=== PATIENT | male | born 1990 | race Caucasian/White ===

== ENCOUNTER 2019-11-29 10:07 | Observation (INO) | payer OTHER, SELFPAY ==
[2019-11-29] VITALS (8 sets, daily range): BP systolic 95–123; BP diastolic 52–67; PULSE 86–125; RESP 16–20; TEMP 36.5–38.1; O2SAT 94–97; BMI 34.3
--- NOTE | ~2019-11-29 | XR_ITS ---
EXAMINATION: XR chest 2V 11/29/2019 11:19 INDICATION: Fever and cough PROCEDURE: 2 view chest COMPARISON: 11/14/2016 and 03/25/2012 FINDINGS: The lungs are clear. The cardiomediastinal silhouette is within normal limits. There are no pleural effusions. There is no pneumothorax suspected. There is chronic posttraumatic deformity distal aspect of the left clavicle. IMPRESSION: 1: NO ACUTE CARDIOPULMONARY DISEASE. Reviewed, dictated and finalized at location [facility]
--- NOTE | 2019-11-29 10:35 | ED.URI ---
HPI - URI/Sore Throat General Chief Complaint: Upper Respiratory Infection Stated Complaint: Marcelino sierra see chest hurts marcelino feel his hands Time Seen by Provider: 11/29/19 10:20 Source: patient Mode of arrival: ambulatory Limitations: no limitations History of Present Illness HPI Narrative: Lewis is a 29-year-old male patient. He presents ambulatory to the emergency room. He states that he has been sick for the past 2 days. He has fever sore throat and nasal congestion. No chest pain. No abdominal pain. No vomiting or diarrhea. MD elicited complaint: fever, sore throat and nasal congestion Pertinent past history: other ( type 2 IDDM) Onset (ago): day(s) ( 2 days) Consistency: intermittent Severity: moderate Description of mucous: clear and watery Able to tolerate fluids by mouth: Yes Exacerbating factors: swallowing Relieving factors: nothing Context: other ( No sick contacts at home. No history of travel.) Associated symptoms: fever and rhinorrhea Treatments prior to arrival: none Related Data Home Medications Medication Instructions Recorded Confirmed insulin glargine [Lantus Solostar 22 unit SUB-Q DAILY 11/29/19 11/29/19 U-100 Insulin] Allergies Allergy/AdvReac Type Severity Reaction Status Date / Time No Known Allergies Allergy Verified 10/29/19 07:39 Review of Systems Review of Systems: All systems reviewed & are unremarkable except as noted in HPI and below Constitutional: Constitutional: Reports as per HPI and Reports fever(s) Eyes: Eyes: Reports as per HPI, Reports no additional eye complaints and Denies change in vision ENT: Reports system reviewed and no additional complaints, except as documented, Reports nasal congestion and Reports sore throat Cardiovascular: Cardiovascular: Reports as per HPI, Reports no additional cardiovascular complaints, Denies chest pain and Denies radiating jaw, neck or arm pain Respiratory: Respiratory: Reports as per HPI, Denies dyspnea and Denies wheezing Gastrointestinal: Gastrointestinal: Reports no additional gastrointestinal complaints, Denies abdominal pain, Denies diarrhea, Denies nausea and Denies vomiting Genitourinary: Genitourinary: Reports no additional male genitourinary complaints, Denies hematuria and Denies dysuria Musculoskeletal: Musculoskeletal: Reports no additional musculoskeletal complaints and Reports myalgias Integumentary/Breasts: Skin/Breast: Reports system reviewed and no additional complaints, except as docu, Denies erythema and Denies rash Neurologic: Reports system reviewed and no additional complaints, except as documented, Denies vertigo, Denies dizziness, Denies syncope, Denies headache(s), Denies focal weakness, Denies numbness and Denies weakness Psychiatric: Psychiatric: Reports no additional psychiatric complaints and Denies anxiety Endocrine: Endocrine: Reports no additional endocrine complaints Comments: History of type 2 IDDM Hematologic/Lymphatic: Hematologic/Lymphatic: Reports no additional hematologic/lymphatic complaints, Denies easy bleeding and Denies easy bruising Allergic/Immunologic: Allergic/Immunologic: Reports no additional allergic/immunologic complaints, Denies lip swelling and Denies tongue swelling PMFSH Social History Social History Smoking status: Never smoker Alcohol intake: former Substance use: never Substance use type: does not use Additional occupation/education comments: construction Gender identity (if verbalized by the patient): Male Spiritual care concerns: No Exam Const: General: no acute distress ( mild distress); No diaphoretic Nutritional Appearance: well nourished Limitations: no limitations HENMT: Ears: TM's normal bilaterally and EAC's normal General nose exam: Nasal discharge present ( clear rhinorrhea) clear Face and sinus: sinuses nontender Mouth: Yes moist mucous membranes Eyes: Conjunctivae: conj
[2019-11-29 10:49] LABS: Basophils Absolute Auto 0.01 K/mm3 (0.00-0.10); Basophils Percent Auto 0.2 % (0.0-1.0); Immature Granulocyte Absolute 0.02 K/mm3 (0.00-0.00); Immature Granulocyte Percent A 0.3 % (0.0-0.0); Lymphocytes Percent Auto 10.8 % (18.0-42.0); Mean Corpuscular Hemoglobin 30.9 pg (27.0-31.0); Mean Corpuscular Volume 88.3 fL (78.0-102.0); Mean Platelet Volume 10.5 fl (8.7-11.0); Monocytes Absolute Auto 0.86 K/mm3 (0.10-0.90); Monocytes Percent Auto 13.2 % (2.0-11.0); Neutrophils Absolute Auto 4.9 K/mm3 (1.7-7.2); Neutrophils Percent Auto 75.5 % (50.0-70.0); Platelet Count Result 200 K/mm3 (150-420); Red Blood Count 4.53 M/mm3 (4.70-6.10); White Blood Count 6.5 K/mm3 (4.8-10.8)
--- NOTE | 2019-11-29 11:00 | PC.NURSE ---
PT CARE IS ASSUMED AT THIS TIME. PT IS SLEEPING AT THIS TIME. PT STATES HE HAS BEEN TYPE II DIABETIC SINCE 2009. STATES THAT HE USES INSULIN AND METFORMIN AND STATES THAT TODAY HAS BEEN THE ONLY TIME HIS FSBS HAS READ HIGH. PT IS UNABLE TO PROVIDE US WITH A URINE, PO FLUIDS GIVEN.
[2019-11-29 11:03] LABS: Alanine Aminotransferase 18 U/L (16-63); Albumin Level 3.1 g/dL (3.4-5.0); Alkaline Phosphatase 83 U/L (46-116); Anion Gap 13.3 mmol/L (7-16); Aspartate Amino Transferase 17 U/L (15-37); Bilirubin,Total 0.6 mg/dL (0.00-1.00); Blood Urea Nitrogen 13 mg/dL (7-18); Calcium 8.6 mg/dL (8.5-10.1); Carbon Dioxide 27 mmol/L (21-32); Chloride 95 mmol/L (98-108); Estimated CRCL calculation 99 ml/min; Estimated Glomerular Filt Rate > 60; Osmolality Calculated 290 mOsm/kg (285-295); Potassium 4.3 mmol/L (3.5-5.1); Sodium 131 mmol/L (136-145); Total Protein 6.7 g/dL (6.4-8.2)
[2019-11-29 11:05] LABS: Glucose 421 mg/dL (70-99)
[2019-11-29 11:06] LABS: Influenza Control Valid (Valid)
[2019-11-29] MEDS: SODIUM CHLORIDE 0.9% IV 1,000 ML 999 ML IV CONT ×2 (11:21→11:52)
[2019-11-29] MEDS: INSULIN HUMAN REGULAR (*BKC) 100 UNITS/ML 8 UNITS IV PUSH (11:23)
[2019-11-29] MEDS: OSELTAMIVIR PHOSPHATE 75 MG CAP PO ×2 (11:25→21:31)
[2019-11-29 11:35] LABS: Base Excess ABG 1.2 mmol/L (0-2); HCO3 ABG 26.1 mmol/L (23-29); Oxygen Content ABG 18.6 %vol (16.0-22.0); Oxygen Saturation ABG 95.3 % (95-97); Oxyhemoglobin 94.5 % (94-100); PCO2 ABG 42.3 mmHg (35-45); PO2 ABG 75.2 mmHg (80-90); pH ABG 7.41 (7.35-7.45)
[2019-11-29 11:36] LABS: Modified Allen's Test Pass; Site Drawn LEFT RADIAL
[2019-11-29 11:37] LABS: Device ROOM AIR
[2019-11-29] MEDS: ACETAMINOPHEN 325 MG TABLET 650 MG PO (11:50)
[2019-11-29 11:59] LABS: Acetone Negative (Negative)
[2019-11-29 12:15] LABS: Glucose Point of Care 226 (65-105)
[2019-11-29] MEDS: SODIUM CHLORIDE 0.9% IV 1,000 ML 125 ML IV CONT ×2 (13:41→21:32)
[2019-11-29 14:01] LABS: Glucose Point of Care 179 (65-105)
--- NOTE | 2019-11-29 14:09 | PM.IMHP ---
H&P: HPI History of Present Illness Chief complaint: Can hardley see chest hurts cant feel his hands Narrative: Lewis Clement is a 29 year old male to the urgent care complaining of shortness of breath, subjective fever, sore throat and nasal congestion for the past 2 day. Patient's past medical history chronic knee and shoulder pain, insulin-dependent diabetic and obesity. Patient's vital signs are 36.6, 96 %, 20, 94, 107/52. According to patient for the last 2 days he has been shortness of breath, subjective fever, sore throat, nasal congestion. During this assessment patient appears to be fatigued that he attributes to influenza. Patient is being admitted for influenza B and hyperglycemia. While in the ER patient did test positive for influenza B his blood sugar was in the 400s. patient was given 8 units of insulin while in the ED. Patient A1c was 10 his blood gas was as follows pH 7.41, pCO2 42.3, PO2 75.2, bicarb 26.1. patient received 2 L bolus the ED as well. Chest x-ray was unremarkable. Patient denies CP, palpitation, extremity numbness, lightheadness, dizziness, constipation, diarrhea, or chills or fever. Review of Systems Constitutional: Constitutional: Reports fatigue, Reports fever(s), Denies headache(s), Reports lethargy and Reports weakness Cardiovascular: Cardiovascular: Reports no additional cardiovascular complaints, Denies lightheadedness, Denies dyspnea on exertion and Denies orthopnea Respiratory: Respiratory: Reports chest congestion, Denies cough and Reports dyspnea Gastrointestinal: Gastrointestinal: Reports no additional gastrointestinal complaints, Denies constipation, Denies diarrhea, Denies loose stools, Denies nausea and Denies vomiting Genitourinary: Genitourinary: Reports no additional male genitourinary complaints Musculoskeletal: Musculoskeletal: Reports no additional musculoskeletal complaints Integumentary/Breasts: Skin/Breast: Reports system reviewed and no additional complaints, except as docu Neurologic: Denies confusion, Denies vertigo, Denies dizziness, Denies syncope and Reports weakness Psychiatric: Psychiatric: Reports no additional psychiatric complaints and Denies confusion [facility] Social History Social History Smoking status: Never smoker Alcohol intake: never Substance use: never Substance use type: does not use Additional occupation/education comments: construction Gender identity (if verbalized by the patient): Male Spiritual care concerns: No Agree to blood products: Yes Meds Home Medications and Allergies Home Medications Medication Instructions Recorded Confirmed Type albuterol sulfate 90 mcg/actuation 1 puff INHALATION Q4H PRN #8.5 gm 10/13/19 11/29/19 Rx aerosol inhaler blood sugar diagnostic #100 each 10/13/19 11/29/19 Rx blood-glucose meter #1 each 10/13/19 11/29/19 Rx fluticasone propionate 50 1 spray NASAL DAILY #18.2 ml 10/13/19 11/29/19 Rx mcg/actuation nasal spray,suspension insulin lispro 100 unit/mL 6 unit SUB-Q DAILY #15 ml 10/13/19 11/29/19 Rx subcutaneous pen lancets 30 gauge #100 each 10/13/19 11/29/19 Rx metformin 500 mg tablet 500 mg PO BID #60 tablet 10/13/19 11/29/19 Rx pen needle, diabetic 31 gauge x #100 each 10/13/19 11/29/19 Rx 5/16 insulin glargine [Lantus Solostar 22 unit SUB-Q DAILY 11/29/19 11/29/19 History U-100 Insulin] Allergies Allergy/AdvReac Type Severity Reaction Status Date / Time No Known Allergies Allergy Verified 10/29/19 07:39 Vital Signs Vital Signs - 24 hr 11/29/19 10:25 11/29/19 11:28 11/29/19 12:19 Temperature 38.1 C H 37.2 C Pulse Rate 125 H 100 100 Respiratory Rate 20 16 16 Blood Pressure 113/67 114/65 123/66 Pulse Oximetry 95 95 96 11/29/19 12:35 11/29/19 13:16 Temperature 36.6 C 36.6 C Pulse Rate 96 Respiratory Rate 20 Blood Pressure 107/52 L Pulse Oximetry 94 Exam Narrative:
[2019-11-29 15:59] LABS: Add Urine Microscopic? YES; Appearance Urine Clear (Clear); Bilirubin Urine Negative (Negative); Blood Urine Negative (Negative); Color Urine Yellow (Yellow); Glucose Urine UA Trace (Negative); Ketones Urine Negative (Negative); Leukocyte Esterase Ur Negative LEU/UL (Negative); Nitrate Urine Negative (Negative); Protein Urine Negative (Negative); Specific Grav Ur <= 1.005 (1.010-1.020); Urobilinogen Urine 0.2 mg/dL (0.2-1.0)
[2019-11-29 16:04] LABS: Bacteria Urine Trace /hpf; RBC Urine 0-2 /hpf (0-2); WBC Urine 0-3 /hpf (0-3)
[2019-11-29 16:23] LABS: Glucose Point of Care 135 (65-105)
[2019-11-29 16:36] LABS: Amphetamine Screen Urine Positive (Negative); Barbiturate Screen Urine Negative (Negative); Benzodiazepines Screen Urine Negative (Negative); Cannabinoid Screen Urine Negative (Negative); Cocaine Screen Urine Negative (Negative); Methadone Screen Urine Negative (Negative); Opiate Screen Urine Negative (Negative); Phencyclidine Screen Urine Negative (Negative)
[2019-11-29] MEDS: metFORMIN HCL 500 MG TABLET PO (18:27)
[2019-11-29] MEDS: BENZONATATE 100 MG CAPSULE 200 MG PO (18:27)
--- NOTE | 2019-11-29 19:30 | PC.NURSE ---
Patient lying in bed. IV NS infusing to site in right hand without difficulty. Patient awakens when spoken to. Denies pain/complaints/needs @ this time. No distress noted. Water pitcher and soda @ bedside. Call light in reach.
--- NOTE | 2019-11-29 21:45 | PC.NURSE ---
Patient awakened easily but remains drowsy. Took HS meds without difficulty. Urinal emptied of clear yellow urine. IV NS infusing to site in right hand without difficulty. Patient denies pain/complaints/needs/SOB/nausea @ this time. No distress noted. Patient says he's just tired. Blood sugar done and =294. Call light in reach.
[2019-11-29 21:47] LABS: Glucose Point of Care 294 (65-105)
[2019-11-30] VITALS: BP 112/67; PULSE 102; RESP 18; TEMP 37.3; O2SAT 93
--- NOTE | 2019-11-30 00:15 | PC.NURSE ---
Patient awakened easily for VS but remained drowsy. Denies pain/complaints/needs/SOB/nausea @ this time. IV NS infusing to site in right hand without difficulty. Water and soda @ bedside. No distress noted. Call light in reach.
--- NOTE | 2019-11-30 01:10 | PC.NURSE ---
Patient appears to be sleeping by the rise and fall of his chest. IV NS infusing to site in right hand without difficulty. No distress noted. Water pitcher and soda @ bedside. Urinal emptied of clear yellow urine. Call light in reach.
--- NOTE | 2019-11-30 04:14 | PC.NURSE ---
Patient turning over in bed as nurse entered room. Patient denies pain/complaints/needs/SOB/nausea @ this time. IV NS infusing to site in right hand without difficulty. Water pitcher refreshed. No distress noted. Call light in reach.
--- NOTE | 2019-11-30 05:00 | PC.NURSE ---
atdarren appears to be sleeping by the rise and fall of his chest. IV NS infusing to site in right hand without difficulty. No distress noted. Water pitcher and soda @ bedside. Call light in reach.
[2019-11-30] MEDS: SODIUM CHLORIDE 0.9% IV 1,000 ML 125 ML IV CONT (05:13)
[2019-11-30 05:31] LABS: Hematocrit 39.3 % (40.0-54.0); Hemoglobin 13.4 g/dL (14.0-18.0); Mean Corpuscular HGB Conc 34.1 g/dL (32.0-36.0); Mean Corpuscular Hemoglobin 30.2 pg (27.0-31.0); Mean Corpuscular Volume 88.7 fL (78.0-102.0); Mean Platelet Volume 10.4 fl (8.7-11.0); Platelet Count Result 171 K/mm3 (150-420); Red Blood Count 4.43 M/mm3 (4.70-6.10); Red Cell Distribution Width 13.2 % (11.6-14.4); White Blood Count 4.1 K/mm3 (4.8-10.8)
[2019-11-30 05:51] LABS: Alanine Aminotransferase 16 U/L (16-63); Albumin Level 2.7 g/dL (3.4-5.0); Alkaline Phosphatase 72 U/L (46-116); Anion Gap 12.9 mmol/L (7-16); Aspartate Amino Transferase 19 U/L (15-37); Bilirubin,Total 0.4 mg/dL (0.00-1.00); Blood Urea Nitrogen 9 mg/dL (7-18); Calcium 7.3 mg/dL (8.5-10.1); Carbon Dioxide 28 mmol/L (21-32); Chloride 98 mmol/L (98-108); Estimated CRCL calculation 127 ml/min; Estimated Glomerular Filt Rate > 60; Glucose 225 mg/dL (70-99); Osmolality Calculated 285 mOsm/kg (285-295); Potassium 3.9 mmol/L (3.5-5.1); Sodium 135 mmol/L (136-145); Total Protein 6.1 g/dL (6.4-8.2)
[2019-11-30 07:48] VITALS: BP 110/69; PULSE 95; RESP 20; TEMP 37.1; O2SAT 100
--- NOTE | 2019-11-30 07:48 | PC.NURSE ---
Lab result 225 11/30/19
[2019-11-30] MEDS: metFORMIN HCL 500 MG TABLET PO (08:59)
[2019-11-30] MEDS: FLUTICASONE PROPIONATE 0.05% NA SPR 16 GM BTL (*BKC) 1 SPRAY NASAL (08:59)
[2019-11-30] MEDS: BENZONATATE 100 MG CAPSULE 200 MG PO (08:59)
[2019-11-30] MEDS: OSELTAMIVIR PHOSPHATE 75 MG CAP PO (08:59)
--- NOTE | 2019-11-30 09:11 | PM.DS ---
DS: Diagnosis Admitting Diagnosis Admitting Diagnosis: Influenza due to unidentified influenza virus with other respiratory manifestations <Jennifer Lozano MEREDITHC - Last Filed: 11/30/19 13:42> Discharge Diagnosis (1) Influenza: Code(s): J11.1 - Influenza due to unidentified influenza virus with other respiratory manifestations <Jennifer Lozano MEREDITHC - Last Filed: 11/30/19 13:42> Status: Acute <Jennifer Lozano MEREDITHC - Last Filed: 11/30/19 13:42> Assessment and Plan: * Patient tested positive for influenza B * continue Tamiflu <Jennifer Lozano HEAD START TEACHER-C - Last Filed: 11/30/19 13:42> (2) Hyponatremia: Code(s): E87.1 - Hypo-osmolality and hyponatremia <Jennifer Lozano MEREDITHC - Last Filed: 11/30/19 13:42> Status: Acute <Jennifer Lozano MEREDITHBrett - Last Filed: 11/30/19 13:42> Assessment and Plan: possibly secondary to viral infection versus dehydration <Jennifer Lozano LUIZ-C - Last Filed: 11/30/19 13:42> (3) Hyperglycemia: Code(s): R73.9 - Hyperglycemia, unspecified <Jennifer Lozano MEREDITHC - Last Filed: 11/30/19 13:42> Status: Acute <Jennifer Lozano SILVIA - Last Filed: 11/30/19 13:42> Assessment and Plan: *blood sugar In the 200s today * A1c 10 * continue home medication and follow with primary care physician <Jennifer Lozano HEAD START TEACHERAustinC - Last Filed: 11/30/19 13:42> (4) Shortness of breath: Code(s): R06.02 - Shortness of breath <Jennifer Lozano [employer] TEACHER-Brett - Last Filed: 11/30/19 13:42> Status: Acute <Jennifer Lozano LUIZ-C - Last Filed: 11/30/19 13:42> Assessment and Plan: * secondary to viral infection * resolved discharge with the inhaler <Jennifer Lozano [employer] TEACHER-C - Last Filed: 11/30/19 13:42> (5) Nicotine dependence: Code(s): F17.200 - Nicotine dependence, unspecified, uncomplicated <Jennifer LozanoLUIZ-C - Last Filed: 11/30/19 13:42> Status: Acute <Jennifer LozanoLUIZ-C - Last Filed: 11/30/19 13:42> Assessment and Plan: refused a prescription for nicotine patch <Jennifer LozanoLUIZ-C - Last Filed: 11/30/19 13:42> (6) Chronic shoulder pain: Code(s): M25.519 - Pain in unspecified shoulder; G89.29 - Other chronic pain <Jennifer LozanoLUIZ-C - Last Filed: 11/30/19 13:42> Status: Acute <Jennifer LozanoLUIZ-C - Last Filed: 11/30/19 13:42> Assessment and Plan: continue pain medication <Jennifer LozanoLUIZ-C - Last Filed: 11/30/19 13:42> (7) Chronic knee pain: Code(s): M25.569 - Pain in unspecified knee; G89.29 - Other chronic pain <Jennifer LozanoLUIZ-C - Last Filed: 11/30/19 13:42> Status: Acute <Jennifer LozanoLUIZ-C - Last Filed: 11/30/19 13:42> Assessment and Plan: continue pain medication <Jennifer LozanoLUIZ-C - Last Filed: 11/30/19 13:42> (8) Type 2 diabetes mellitus, with long-term current use of insulin: Qualifiers: Diabetes mellitus complication status: without complication Qualified Code(s): E11.9 - Type 2 diabetes mellitus without complications; Z79.4 - manager terminal (current) use of insulin <Jennifer OwensJennifer BlakeLUIZ-C - Last Filed: 11/30/19 13:42> Code(s): E11.9 - Type 2 diabetes mellitus without complications; Z79.4 - manager terminal (current) use of insulin <Williegerber GracielaLUIZ Chirinos-C - Last Filed: 11/30/19 13:42> Status: Acute <Sonda SILVIA Talavera - Last Filed: 11/30/19 13:42> Assessment and Plan: *blood sugar and 200s * A1c 10 follow-up with PCP <SILVIA Pereyra - Last Filed: 11/30/19 13:42> (9) Amphetamine abuse: Code(s): F15.10 - Other stimulant abuse, uncomplicated <SILVIA Pereyra - Last Filed: 11/30/19 13:42> Status: Acute <SILVIA Pereyra - Last Filed: 11/30/19 13:42> Assessment and Plan: du
--- NOTE | 2019-11-30 20:46 | PM.EVENT ---
Event Note Event Note Event Note: I had eyru-ox-jylc time with this patient and reviewed Keaton Lozano NP's documentation, treatment plan, and medical decision making. Pt states in the last week or so his blood pressures have periodically been running higher. He attributes blurred vision to hyperglycemia. Sodium corrected for glucose = 137, Calcium corrected for albumin = 8.56. Agree with plan.
== END 2019-11-30 10:00 | disposition home or self-care (01) ==
LOC: CHSED 11:08 → CHS2ND 12:09
PROVIDERS: Nurse Practitioner; Admitting Provider Surgery; Emergency Provider Surgery; PCP Family Medicine; Visit Provider Surgery
DX: J11.1 Influenza due to unidentified influenza virus with other respiratory manifestations (principal); E87.1 Hypo-osmolality and hyponatremia; E11.65 Type 2 diabetes mellitus with hyperglycemia; M25.519 Pain in unspecified shoulder; G89.29 Other chronic pain; Z79.4 Long term (current) use of insulin
CPT/HCPCS: 36415; 36600; 71046; 80053; 80307; 81001; 82010; 82805; 83036; 85025; 85027; 87081; 87804; 87880; 96360; 96361; 96374; 99284; 99285; A9270; G0378; G0379; J1815; J7030

== ENCOUNTER 2020-01-23 13:46 | Emergency (ER) | payer OTHER, SELFPAY ==
[2020-01-23 14:07] VITALS: BP 138/78; PULSE 78; RESP 18; TEMP 36.9; O2SAT 97
[2020-01-23 14:34] LABS: Hematocrit 39.7 % (40.0-54.0); Hemoglobin 13.4 g/dL (14.0-18.0); Mean Corpuscular HGB Conc 33.8 g/dL (32.0-36.0); Mean Corpuscular Hemoglobin 30.5 pg (27.0-31.0); Mean Corpuscular Volume 90.4 fL (78.0-102.0); Mean Platelet Volume 9.8 fl (8.7-11.0); Platelet Count Result 256 K/mm3 (150-420); Red Blood Count 4.39 M/mm3 (4.70-6.10); White Blood Count 11.9 K/mm3 (4.8-10.8)
[2020-01-23 14:49] LABS: Alanine Aminotransferase 29 U/L (16-63); Albumin Level 2.9 g/dL (3.4-5.0); Alkaline Phosphatase 126 U/L (46-116); Anion Gap 10.8 mmol/L (7-16); Aspartate Amino Transferase 16 U/L (15-37); Bilirubin,Total 0.5 mg/dL (0.00-1.00); Blood Urea Nitrogen 10 mg/dL (7-18); Calcium 8.6 mg/dL (8.5-10.1); Carbon Dioxide 28 mmol/L (21-32); Chloride 99 mmol/L (98-108); Estimated CRCL calculation 97 ml/min; Estimated Glomerular Filt Rate > 60; Glucose 320 mg/dL (70-99); Osmolality Calculated 289 mOsm/kg (285-295); Potassium 3.8 mmol/L (3.5-5.1); Sodium 134 mmol/L (136-145); Total Protein 6.8 g/dL (6.4-8.2)
[2020-01-23] MEDS: KETOROLAC (*BKC) 60 MG/2 ML VIAL IM (14:56)
--- NOTE | 2020-01-23 14:58 | PC.NURSE ---
Pt state he is unable to provide urine sample at this time.
[2020-01-23] MEDS: AZITHROMYCIN 250 MG TABLET 1000 MG PO (15:16)
[2020-01-23] MEDS: cefTRIAXone 500 MG VIAL IM (15:17)
[2020-01-23 15:29] LABS: Bilirubin Urine Negative (Negative); Blood Urine Negative (Negative); Glucose Urine UA 3+ (Negative); Ketones Urine Negative (Negative); Leukocyte Esterase Ur Negative (Negative); Nitrate Urine Negative (Negative); Protein Urine Negative (Negative); Urobilinogen Urine 0.2 mg/dL (0.2-1.0)
--- NOTE | 2020-01-23 15:38 | ED.MALEGU ---
HPI - Male Genitourinary General Chief complaint: Urogenital-Male Stated complaint: testical pain Source: patient Mode of arrival: ambulatory Limitations: no limitations History of Present Illness HPI Narrative: Sh 29-year-old male presents with some some penile discharge started approximately 2 days ago greenish discharge, admits to a high risk sexual encounter is having left testicular pain with no injury it is tender and swollen, currently no fever chills no nausea vomiting no abdominal pain no back pain. MD Complaint: testicle pain, testicle swelling, penile discharge and dysuria Onset (ago): day(s) Duration: constant Location: penis and left testicle Radiation: penis Severity: moderate Severity scale (1-10): 6 Quality: aching Relieving factors: supine Exacerbating factors: palpation and movement Associated symptoms: Reports discharge and swelling Related Data Sexually active: Yes Home Medications Medication Instructions Recorded Confirmed insulin glargine [Lantus U-100 30 unit SUBCUT QAM 01/23/20 01/23/20 Insulin] insulin lispro [Humalog U-100 6 unit SUBCUT TID 01/23/20 01/23/20 Insulin] Allergies Allergy/AdvReac Type Severity Reaction Status Date / Time No Known Allergies Allergy Verified 12/07/19 06:54 Review of Systems Review of Systems: All systems reviewed & are unremarkable except as noted in HPI and below PMFSH Past Medical History Medical History Chronic knee pain Chronic shoulder pain Nicotine dependence Obesity, Class I, BMI 30-34.9 Type 2 diabetes mellitus, with long-term current use of insulin Surgical History Surgical History No history of previous surgery Family History Family History Other Family history of coronary artery disease Family history of type 2 diabetes mellitus Social History Social History Smoking status: Never smoker Alcohol intake: never Substance use: never Substance use type: does not use Additional occupation/education comments: construction Gender identity (if verbalized by the patient): Male Spiritual care concerns: No Agree to blood products: Yes Exam Const: General: no acute distress and alert Orientation/consciousness: oriented to person, oriented to place and oriented to time HENMT: Head: normal to inspection Eyes: Conjunctivae: conjunctivae normal Pupils: Equal, round and reactive pupils present Neck: Neck: normal visual inspection and no lymphadenopathy Other: Left inguinal lymphadenopathy and tender to palpation Chest: Chest palpation & inspection: normal inspection of the chest and abnormal inspection of the chest Resp: Effort & Inspection: normal respiratory effort Auscultation: clear to auscultation bilaterally Cardio: Rate: regular rate Rhythm: regular rhythm GI: GI Palp: Yes Soft to palpation : Scrotum: scrotal swelling Testes: epididymal tenderness Back/Spine/Pelvis: Other: penile discharge Extrem: General: normal to inspection Course Course Emergency Course: patient currently sleeping and had a more comfortable after medication. Vital Signs Vital signs: Vital Signs Temperature 36.9 C 01/23/20 14:07 Pulse Rate 78 01/23/20 14:07 Respiratory Rate 18 01/23/20 14:07 Blood Pressure 138/78 01/23/20 14:07 Pulse Oximetry 97 01/23/20 14:07 Temperature 36.9 C 01/23/20 14:07 Pulse Rate 78 01/23/20 14:07 Respiratory Rate 18 01/23/20 14:07 Blood Pressure 138/78 01/23/20 14:07 Pulse Oximetry 97 01/23/20 14:07 MDM - Male Genitourinary Lab Data Attestation: I reviewed the patient's lab results. Result diagrams: 01/23/20 14:26 01/23/20 14:26 Labs: Lab Results 01/23/20 01/23/20 01/23/20 Range/Units 1
[2020-01-23 15:42] LABS: HIV 1 P24 AG Negative (Negative); HIV 1/2 AB Negative (Negative)
--- NOTE | 2020-01-23 15:42 | PC.NURSE ---
Pt sleeping on stretcher, awakens easily when name called.
[2020-01-23 15:46] LABS: Add Urine Microscopic? YES; Appearance Urine Cloudy (Clear); Color Urine Light Yellow (Yellow); RBC Urine None seen /hpf (0-2)
[2020-01-23 15:47] LABS: Bacteria Urine Trace /hpf; Squamous Epithelial Cell Urine None seen /hpf (Few); WBC Clumps Urine Present /hpf; WBC Urine >75 /hpf (0-3)
[2020-01-23 16:04] VITALS: RESP 18; O2SAT 98
[2020-01-27 16:28] LABS: RPR Screen Non-Reactive (Non-Reactive)
== END 2020-01-23 16:04 | disposition home or self-care (01) ==
PROVIDERS: Emergency Provider Emergency Medicine
DX: Z20.2 Contact with and (suspected) exposure to infections with a predominantly sexual mode of transmission (principal); N45.1 Epididymitis
CPT/HCPCS: 36415; 80053; 81001; 85027; 86592; 86703; 87491; 87591; 96372; 99284; A9270; J0696; J1885

== ENCOUNTER 2020-04-21 07:49 | Emergency (ER) | payer OTHER, SELFPAY ==
[2020-04-21] VITALS (7 sets, daily range): BP systolic 109–139; BP diastolic 60–81; PULSE 94–111; RESP 13–20; TEMP 36.7; O2SAT 95–100
--- NOTE | ~2020-04-21 | XR_ITS ---
EXAMINATION: XR chest 1V portable INDICATION: Shortness of breath TECHNIQUE: Portable AP chest at 0957 hours COMPARISON: 11/29/2019 FINDINGS: The lungs are free of acute opacities. There is no pleural effusion or pneumothorax. The ca rdiomediastinal silhouette is normal. There are chronic changes at the left acromioclavicular joint c onsistent with prior injury. IMPRESSION: 1. No acute cardiopulmonary abnormality. Reviewed, dictated and finalized at location A.
[2020-04-21 08:02] LABS: Glucose Point of Care > 450 (65-105)
[2020-04-21] MEDS: INSULIN HUMAN REGULAR (*BKC) 100 UNITS/ML IV PUSH (08:35)
--- NOTE | 2020-04-21 08:40 | ECG_ITS ---
Measurements Intervals [place] Rate: 105 P: 85 PA: 124 QRS: 70 QRSD: 100 T: 4 QT: 347 QTc: 460 Interpretive Statements SINUS TACHYCARDIA INCOMPLETE RIGHT BUNDLE BRANCH BLOCK NONSPECIFIC T-WAVE ABNORMALITY- INFERIOR LEADS ABNORMAL ECG Electronically Signed On 04-21-2020 9:09:37 CDT by Juno Burton D.O.
[2020-04-21] MEDS: ONDANSETRON INJ 4 MG/2 ML VIAL IV PUSH (08:43)
--- NOTE | 2020-04-21 08:47 | ED.GENADULT ---
HPI - General Adult General Chief complaint: Nausea/Vomiting/Diarrhea Stated complaint: ambulance Source: patient Mode of arrival: EMS Limitations: no limitations History of Present Illness HPI narrative: 29 y.o. with Type 1 IDDM felt lightheaded yesterday. He has had polyuria and intense thirst since ~ 1 AM. At 6:45 AM today he developed nausea, vomiting x 6. C/o new onset SOB while I was examining him at 8:30 AM. He has been taking Lantus 30 u ever AM and Novolog 7 units TID, before meals. He ran out of his insulin yesterday AM. He was dx with DM 04/2010, started on insulin 09/2010. He has a past hx (several years ago) of cocaine use; denies any illicit drug use since then. No IV drugs. Related Data Home Medications Medication Instructions Recorded Confirmed insulin glargine [Lantus U-100 30 unit SUBCUT QAM 01/23/20 04/21/20 Insulin] insulin lispro [Humalog U-100 7 unit SUBCUT TID 01/23/20 04/21/20 Insulin] Allergies Allergy/AdvReac Type Severity Reaction Status Date / Time No Known Allergies Allergy Verified 12/07/19 06:54 Review of Systems Constitutional: Constitutional: Denies chills and Denies fever(s) Eyes: Comments: blurred vision left eye ENT: Reports sore throat (yesterday after swalling a piece of yoder; resolved. ) Cardiovascular: Cardiovascular: Denies chest pain Respiratory: Respiratory: Denies chest congestion, Denies cough and Denies wheezing Gastrointestinal: Gastrointestinal: Denies abdominal pain, Denies constipation and Denies diarrhea Genitourinary: Genitourinary: Denies dysuria and Denies penile discharge Musculoskeletal: Musculoskeletal: Denies myalgias and Denies arthralgias Integumentary/Breasts: Skin/Breast: Denies rash and Denies skin ulcer Neurologic: Reports numbness (side of left thumb/old. No new symptoms of numbness. ) Psychiatric: Psychiatric: Denies anxiety and Denies depression Endocrine: Endocrine: Reports polydipsia and Reports polyuria PMF Past Medical History Medical History Chronic knee pain Chronic shoulder pain Nicotine dependence Obesity, Class I, BMI 30-34.9 Type 2 diabetes mellitus, with long-term current use of insulin Surgical History Surgical History No history of previous surgery Family History Family History Other Family history of coronary artery disease Family history of type 2 diabetes mellitus Social History Social History Smoking status: Never smoker Alcohol intake: never Substance use: never Substance use type: does not use Additional occupation/education comments: construction Gender identity (if verbalized by the patient): Male Spiritual care concerns: No Agree to blood products: Yes Exam Narrative: Exam Narrative: Eyes are partially open, R>L Const: General: No no acute distress, confusion or diaphoretic Orientation/consciousness: patient oriented x3 (Thinks it's april 22, (it is April 21, Friday)) Limitations: No altered mental status HENMT: Head: normal to inspection Ears: TM's normal bilaterally Mouth: Yes Normal oral and palatal mucosa present Eyes: Conjunctivae: conjunctivae normal Pupils: Equal, round and reactive pupils present Other: upper 1/3 of pupil is covered with eyelid on right, upper 2/3 of eyelid covers pupil on the left. Reads print left eye only when eyelid is manually raised. Neck: Neck: normal visual inspection and no lymphadenopathy Chest: Chest palpation & inspection: normal inspection of the chest Resp: Effort & Inspection: normal respiratory effort and not labored Auscultation: clear to auscultation bilaterally Cardio: Rate: regular rate Rhythm: regular rhythm Heart sounds: no murmurs GI: Inspection: distended GI Palp: Yes Soft to pal
[2020-04-21 08:52] LABS: Basophils Absolute Auto 0.03 K/mm3 (0.00-0.10); Basophils Percent Auto 0.4 % (0.0-1.0); Eosinophils Absolute Auto 0.01 K/mm3 (0.02-0.50); Eosinophils Percent Auto 0.1 % (1.0-6.0); Hematocrit 40.2 % (40.0-54.0); Hemoglobin 14.3 g/dL (14.0-18.0); Immature Granulocyte Absolute 0.02 K/mm3 (0.00-0.00); Immature Granulocyte Percent A 0.3 % (0.0-0.0); Lymphocytes Absolute Auto 1.04 K/mm3 (1.10-4.50); Lymphocytes Percent Auto 13.4 % (18.0-42.0); Mean Corpuscular HGB Conc 35.6 g/dL (32.0-36.0); Mean Corpuscular Hemoglobin 30.8 pg (27.0-31.0); Mean Corpuscular Volume 86.5 fL (78.0-102.0); Mean Platelet Volume 11.3 fl (8.7-11.0); Monocytes Percent Auto 6.4 % (2.0-11.0); Neutrophils Absolute Auto 6.2 K/mm3 (1.7-7.2); Neutrophils Percent Auto 79.4 % (50.0-70.0); Platelet Count Result 276 K/mm3 (150-420); Red Blood Count 4.65 M/mm3 (4.70-6.10); Red Cell Distribution Width 12.2 % (11.6-14.4); White Blood Count 7.8 K/mm3 (4.8-10.8)
[2020-04-21 08:58] LABS: Base Excess ABG -4.7 mmol/L (0-2); HCO3 ABG 20.1 mmol/L (23-29); Oxygen Content ABG 19.1 %vol (16.0-22.0); Oxygen Saturation ABG 94.7 % (95-97); Oxyhemoglobin 94.1 % (94-100); PCO2 ABG 36.7 mmHg (35-45); PO2 ABG 79.9 mmHg (80-90); Total Hemoglobin 14.4 g/dL; pH ABG 7.36 (7.35-7.45)
[2020-04-21] MEDS: INSULIN HUMAN REGULAR (*BKC) 100 UNITS in SODIUM CHLORIDE 0.9% IV 99 ML IV CONT (09:00)
[2020-04-21 09:05] LABS: Device ROOM AIR; Modified Allen's Test Pass; Site Drawn RIGHT RADIAL
[2020-04-21 09:07] LABS: Amphetamine Screen Urine Positive (Negative); Barbiturate Screen Urine Negative (Negative); Benzodiazepines Screen Urine Negative (Negative); Cannabinoid Screen Urine Negative (Negative); Cocaine Screen Urine Negative (Negative); Methadone Screen Urine Negative (Negative); Opiate Screen Urine Negative (Negative); Phencyclidine Screen Urine Negative (Negative)
[2020-04-21 09:17] LABS: Influenza Control Valid (Valid)
[2020-04-21 09:17] LABS: Lactic Acid 3.1 mmol/L (0.4-2.0)
[2020-04-21 09:19] LABS: Acetone Negative (Negative)
[2020-04-21 09:24] LABS: Alanine Aminotransferase 39 U/L (16-63); Albumin Level 3.3 g/dL (3.4-5.0); Alkaline Phosphatase 124 U/L (46-116); Anion Gap 20.3 mmol/L (7-16); Aspartate Amino Transferase 30 U/L (15-37); Bilirubin,Total 1.2 mg/dL (0.00-1.00); Blood Urea Nitrogen 16 mg/dL (7-18); Calcium 8.7 mg/dL (8.5-10.1); Carbon Dioxide 22 mmol/L (21-32); Chloride 89 mmol/L (98-108); Estimated CRCL calculation 79 ml/min; Estimated Glomerular Filt Rate 54; Potassium 4.3 mmol/L (3.5-5.1); Sodium 127 mmol/L (136-145); Total Protein 6.8 g/dL (6.4-8.2)
[2020-04-21 09:33] LABS: Glucose > 800 mg/dL (70-99); Osmolality Calculated 304 mOsm/kg (285-295)
[2020-04-21 09:34] LABS: Magnesium 1.9 mg/dL (1.8-2.4)
[2020-04-21] MEDS: SODIUM CHLORIDE 0.9% IV 1,000 ML 999 ML IRRIGATION (09:56)
--- NOTE | 2020-04-21 09:59 | PC.NURSE ---
Pt requesting something to drink at this time, per MD Stephen pt may have ice chips. Ice chips provided, pt states I don't want this I want something to drink. Pt informed that we need to trial ice chips at this time and can re-evaluate if he can have something to drink later. Pt agreeable at this time. Remains laying on stretcher, on monitor, with call light in reach.
[2020-04-21] MEDS: KCL 20MEQ/0.9% SOD CHL 1,000 ML 500 ML IV CONT (10:12)
[2020-04-21] MEDS: INSULIN HUMAN REGULAR (*BKC) 100 UNITS/ML 6 UNITS IV PUSH (10:16)
[2020-04-21] MEDS: INSULIN HUMAN REGULAR (*BKC) 100 UNITS in SODIUM CHLORIDE 0.9% IV 99 ML 10 UNITS IV CONT (10:20)
[2020-04-21 10:27] LABS: Anion Gap 17.1 mmol/L (7-16); Blood Urea Nitrogen 15 mg/dL (7-18); Calcium 8.7 mg/dL (8.5-10.1); Carbon Dioxide 23 mmol/L (21-32); Chloride 95 mmol/L (98-108); Estimated CRCL calculation 82 ml/min; Estimated Glomerular Filt Rate 56; Potassium 4.1 mmol/L (3.5-5.1); Sodium 131 mmol/L (136-145)
[2020-04-21 10:28] LABS: Glucose 720 mg/dL (70-99); Osmolality Calculated 307 mOsm/kg (285-295)
[2020-04-21 10:29] LABS: Phosphorus 3.3 mg/dL (2.6-4.7)
--- NOTE | 2020-04-21 10:33 | PC.NURSE ---
Pt tolerated ice chips without issue, MD Stephen made aware, pt requests water at this time. MD Stephen states pt can have water, water provided. Pt remains on stretcher, on monitor, with call light in reach.
--- NOTE | 2020-04-21 10:49 | PC.NURSE ---
[facility] contacted for bed transfer, informed that they do not have an ICU bed available at this time and will not throughout the day. Pt next requests we contact [facility], they are contacted at this time and we are awaiting word back.
[2020-04-21 10:57] LABS: Glucose Point of Care > 450 (65-105)
--- NOTE | 2020-04-21 11:00 | PC.NURSE ---
MD Stephen gave report to accepting physician MD Stewart at [facility]. Awaiting bed assignment at this time. Pt continues to rest on stretcher in NAD, remains on monitor, call light in reach.
[2020-04-21 11:37] LABS: Anion Gap 13.9 mmol/L (7-16); Blood Urea Nitrogen 13 mg/dL (7-18); Calcium 8.7 mg/dL (8.5-10.1); Carbon Dioxide 26 mmol/L (21-32); Chloride 98 mmol/L (98-108); Estimated CRCL calculation 84 ml/min; Estimated Glomerular Filt Rate 58; Potassium 3.9 mmol/L (3.5-5.1); Sodium 134 mmol/L (136-145)
[2020-04-21 11:38] LABS: Glucose 506 mg/dL (70-99); Osmolality Calculated 301 mOsm/kg (285-295)
[2020-04-21] MEDS: INSULIN HUMAN REGULAR (*BKC) 100 UNITS in SODIUM CHLORIDE 0.9% IV 99 ML 6 UNITS IV CONT (11:45)
--- NOTE | 2020-04-21 12:07 | PC.NURSE ---
Report provided to [facility]STR[facility] for transfer. Pt to be transfered to [facility] ICU A4, pending transportation. Currently pt is rest on stretcher, talking on phone to family, NAD noted, remains on monitor, and call light in reach.
--- NOTE | 2020-04-21 12:19 | PC.NURSE ---
[facility] called for transport, awaiting call back for ETA.
[2020-04-21 13:06] LABS: Anion Gap 9.1 mmol/L (7-16); Blood Urea Nitrogen 12 mg/dL (7-18); Calcium 8.7 mg/dL (8.5-10.1); Carbon Dioxide 30 mmol/L (21-32); Chloride 101 mmol/L (98-108); Estimated CRCL calculation 90 ml/min; Estimated Glomerular Filt Rate > 60; Glucose 365 mg/dL (70-99); Osmolality Calculated 296 mOsm/kg (285-295); Potassium 4.1 mmol/L (3.5-5.1); Sodium 136 mmol/L (136-145)
[2020-04-22 00:47] LABS: SARS-CoV-2 RNA PCR Negative
[2020-05-04 10:50] LABS: Glucose Point of Care > 450 (65-105)
== END 2020-04-21 12:56 | disposition short-term general hospital (02) ==
PROVIDERS: Emergency Provider Family Medicine; PCP Family Medicine
DX: E10.10 Type 1 diabetes mellitus with ketoacidosis without coma (principal); Z79.4 Long term (current) use of insulin
CPT/HCPCS: 36415; 36600; 71045; 80048; 80053; 80307; 82010; 82805; 83605; 83735; 84100; 85025; 87040; 87635; 87804; 93005; 96361; 96365; 96366; 96375; 96376; 99285; C9803; J1815; J2405; J3480; J7030; U0003

== ENCOUNTER 2020-06-23 15:35 | Emergency (ER) | payer OTHER, SELFPAY ==
--- NOTE | 2020-06-23 15:47 | ED.SKABFB ---
HPI - Skin/Abscess/Foreign Bdy General Chief complaint: Skin/Abscess/Foreign Body Stated complaint: swelling in chest,shoulder,neck Time Seen by Provider: 06/23/20 15:47 Source: patient Mode of arrival: ambulatory Limitations: no limitations History of Present Illness HPI narrative: 29-year-old man comes in today complaining of left shoulder pain and a rash on his left arm that has been present for last 2 days. Patient states that he thought it was a staph infection. He developed the symptoms a week and a half after having a tattoo on his left upper chest. He has had no fever, nausea, vomiting, difficulty breathing, cough, rash elsewhere, headache or throat pain. MD complaint: rash Onset (ago): day(s) (2) Location: LUE Severity: moderate Quality: burning and sharp Pain Consistency: constant Relieving factors: none Exacerbating factors: palpation Context: none Treatments prior to arrival: NSAID Related Data Home Medications Medication Instructions Recorded Confirmed insulin glargine [Lantus U-100 40 unit SUBCUT QAM 01/23/20 06/23/20 Insulin] insulin lispro [Humalog U-100 See Protocol SUBCUT TID 01/23/20 06/23/20 Insulin] Allergies Allergy/AdvReac Type Severity Reaction Status Date / Time No Known Allergies Allergy Verified 12/07/19 06:54 Review of Systems Constitutional: Constitutional: Denies chills, Denies fever(s) and Denies weakness Eyes: Eyes: Denies change in vision and Denies photophobia ENT: Denies nasal congestion and Denies sore throat Cardiovascular: Cardiovascular: Denies chest pain and Denies radiating jaw, neck or arm pain Respiratory: Respiratory: Denies cough, Denies dyspnea and Denies wheezing Gastrointestinal: Gastrointestinal: Denies abdominal pain, Denies nausea and Denies vomiting Musculoskeletal: Musculoskeletal: Denies arthralgias and Denies joint swelling Integumentary/Breasts: Skin/Breast: Reports as per HPI, Denies pruritus, Denies erythema and Reports rash Neurologic: Denies vertigo, Denies dizziness and Denies syncope Endocrine: Endocrine: Denies polydipsia and Denies polyuria Hematologic/Lymphatic: Hematologic/Lymphatic: Denies easy bleeding and Denies easy bruising Allergic/Immunologic: Allergic/Immunologic: Denies lip swelling and Denies wheezing PMFSH Past Medical History Medical History Chronic knee pain Chronic shoulder pain Nicotine dependence Obesity, Class I, BMI 30-34.9 Type 2 diabetes mellitus, with long-term current use of insulin Surgical History Surgical History No history of previous surgery Social History Social History Smoking status: Never smoker Alcohol intake: never Substance use: never Substance use type: does not use Additional occupation/education comments: construction Gender identity (if verbalized by the patient): Male Spiritual care concerns: No Agree to blood products: Yes Exam Const: General: healthy appearing and alert Orientation/consciousness: patient oriented x3 Limitations: no limitations Other: Mild acute distress. HENMT: Head: normal to inspection Mouth: Yes moist mucous membranes Throat: posterior oropharynx normal Eyes: Conjunctivae: conjunctivae normal Pupils: Equal, round and reactive pupils present EOM: EOMs intact bilaterally Resp: Effort & Inspection: normal respiratory effort and not labored Auscultation: clear to auscultation bilaterally, no rales, no rhonchi and no wheezes Cardio: Rate: regular rate Rhythm: regular rhythm Heart sounds: no murmurs Skin: General skin exam: normal color, no jaundice and no pallor Other: Patches of vesicular lesions on the left upper arm, left forearm. There tender. is tenderness palpation of the skin over the scapula and over the right upper lateral chest near the axilla. T
[2020-06-23 15:48] VITALS: BP 120/68; PULSE 81; RESP 18; TEMP 36.7; O2SAT 97
[2020-06-23 16:05] VITALS: BP 122/75; PULSE 80; RESP 18; O2SAT 100
== END 2020-06-23 16:09 | disposition home or self-care (01) ==
PROVIDERS: Emergency Provider Emergency Medicine
DX: B02.9 Zoster without complications (principal)
CPT/HCPCS: 99283

== ENCOUNTER 2020-06-24 22:44 | Emergency (ER) | payer OTHER, SELFPAY ==
--- NOTE | 2020-06-24 23:00 | ED.MALEGU ---
HPI - Male Genitourinary General Chief complaint: Urogenital-Male Stated complaint: possible STD Source: patient and RN notes reviewed Mode of arrival: ambulatory Limitations: no limitations History of Present Illness HPI Narrative: Patient states his girlfriend was recently diagnosed with gonorrhea and chlamydia. He has had cream-colored discharge for the last 2 days. He denies any dysuria. Complaint: penile discharge ([place]) Onset (ago): day(s) (2) Duration: intermittent Location: penis Severity: moderate Relieving factors: none Exacerbating factors: none Associated symptoms: Reports denies other symptoms Related Data Home Medications Medication Instructions Recorded Confirmed insulin glargine [Lantus U-100 40 unit SUBCUT QAM 01/23/20 06/24/20 Insulin] insulin lispro [Humalog U-100 See Protocol SUBCUT TID 01/23/20 06/24/20 Insulin] Allergies Allergy/AdvReac Type Severity Reaction Status Date / Time No Known Allergies Allergy Verified 12/07/19 06:54 Review of Systems Review of Systems: All systems reviewed & are unremarkable except as noted in HPI and below PMFSH Past Medical History Medical History Chronic knee pain Chronic shoulder pain Nicotine dependence Obesity, Class I, BMI 30-34.9 Type 2 diabetes mellitus, with long-term current use of insulin Surgical History Surgical History No history of previous surgery Family History Family History Other Family history of coronary artery disease Family history of type 2 diabetes mellitus Social History Social History Smoking status: Never smoker Alcohol intake: never Substance use: never Substance use type: does not use Additional occupation/education comments: construction Gender identity (if verbalized by the patient): Male Spiritual care concerns: No Agree to blood products: Yes Exam Const: General: healthy appearing, no acute distress and alert Nutritional Appearance: well nourished Orientation/consciousness: patient oriented x3 Other: Patient gave me permission to speak freely in front of his girlfriend. HENMT: Head: normal to inspection Face and sinus: normal facial exam Eyes: Conjunctivae: conjunctivae normal Pupils: Equal, round and reactive pupils present EOM: EOMs intact bilaterally Neck: Neck: normal visual inspection Resp: Effort & Inspection: normal respiratory effort Auscultation: clear to auscultation bilaterally Cardio: Rate: regular rate Rhythm: regular rhythm GI: GI Palp: Yes Soft to palpation and No Tenderness to palpation present (GI) Auscultation: normal bowel sounds Back/Spine/Pelvis: Cervical Spine: cervical ROM normal Thoracic/Lumbar Spine: thoraco-lumbar ROM normal Skin: General skin exam: normal color Rashes: no rashes Neuro: General: patient oriented x3 and moves all extremities Speech: normal speech Gait exam (Neuro): Normal gait present Extrem: General: normal to inspection and no clubbing, cyanosis or edema Psych: Appearance: grossly normal and well kempt Mental Status: mental status grossly normal Affect: normal affect Attitude: cooperative Thought content: Yes Normal thought content present Course Vital Signs Vital signs: Vital Signs Temperature 35.7 C L 06/24/20 23:04 Pulse Rate 109 H 06/24/20 23:04 Respiratory Rate 20 06/24/20 23:04 Blood Pressure 136/82 06/24/20 23:04 Pulse Oximetry 97 06/24/20 23:04 Temperature 36.6 C 06/24/20 23:48 Pulse Rate 98 06/24/20 23:48 Respiratory Rate 18 06/24/20 23:48 Blood Pressure 128/78 06/24/20 23:48 Pulse Oximetry 98 06/24/20 23:48 MDM - Male Genitourinary Lab Data Labs: Lab Results 06/24/20 Range/Units 23:28 C.trachomatis RNA (TMA) Pending N.gonorrhoeae
[2020-06-24 23:04] VITALS: BP 136/82; PULSE 109; RESP 20; TEMP 35.7; O2SAT 97
[2020-06-24 23:08] VITALS: BP 136/82; PULSE 100; RESP 18; TEMP 35.7; O2SAT 97
[2020-06-24] MEDS: cefTRIAXone 250 MG VIAL IM (23:32)
[2020-06-24] MEDS: LIDOCAINE HCL 1% LOCAL INJ 20 ML VIAL (23:32)
[2020-06-24] MEDS: AZITHROMYCIN 250 MG TABLET 1000 MG PO (23:33)
[2020-06-24 23:48] VITALS: BP 128/78; PULSE 98; RESP 18; TEMP 36.6; O2SAT 98
== END 2020-06-24 23:49 | disposition home or self-care (01) ==
PROVIDERS: Emergency Provider Emergency Medicine
DX: Z20.2 Contact with and (suspected) exposure to infections with a predominantly sexual mode of transmission (principal)
CPT/HCPCS: 87491; 87591; 96372; 99283; A9270; J0696

== ENCOUNTER 2020-09-28 20:48 | Emergency (ER) | payer OTHER, SELFPAY ==
--- NOTE | ~2020-09-28 | XR_ITS ---
EXAMINATION: XR chest 1V portable INDICATION: Transient alteration of awareness TECHNIQUE: Portable AP chest at 2109 hours COMPARISON: 04/21/2020 FINDINGS: The lung volumes are low. There are patchy bilateral airspace opacities. The heart size is normal. There is no pleural effusion or pneumothorax. The visualized osseous structures are unremarka ble. IMPRESSION: 1. Patchy bilateral airspace opacities which could be due to poor inspiration versus pneumonia/atelec tasis. Reviewed, dictated and finalized at location A. ICAL ASST IMPRESSION: 1. Patchy bilateral airspace opacities which could be due to poor inspiration v ersus pneumonia/atelectasis.
--- NOTE | 2020-09-28 20:52 | ED.AMS ---
HPI - Altered Mental Status General Chief Complaint: Unspecified Stated Complaint: elevated blood sugar Time Seen by Provider: 09/28/20 20:52 Source: patient Mode of arrival: wheelchair Limitations: altered mental status History of Present Illness HPI narrative: 30-year-old man brought to the emergency department by friends with altered mental status while he was complaining that his blood sugar was too high. Friend who accompanies here with him today states that he was fine today ate lunch and was having no problems when she saw that he went to the local [employer]. She states she fell asleep when she woke up friend was telling her that he was having problems. She is unaware of any recent drug or alcohol use or trauma however he did fall out of his vehicle on arriving to the hospital. He is here visiting friends and some of his insulin is at home and unavailable to him. complaint: altered mental status and decreased responsiveness Onset (ago): hour(s) (1-2) Timing confirmed by: family member Severity: severe Consistency of symptoms: constant Context: diabetes Associated symptoms: denies other symptoms Related Data Home Medications Medication Instructions Recorded Confirmed insulin glargine [Lantus U-100 40 unit SUBCUT QAM 01/23/20 09/28/20 Insulin] insulin lispro [Humalog U-100 See Protocol SUBCUT TID 01/23/20 09/28/20 Insulin] Allergies Allergy/AdvReac Type Severity Reaction Status Date / Time Fish Containing Products Allergy Unknown Verified 09/28/20 21:23 Review of Systems Review of Systems: ROS unobtainable: Yes unobtainable due to mental status PMFSH Past Medical History Medical History (Updated 09/28/20 @ 22:56 by Shane Rodriguez MD) Chronic knee pain Chronic shoulder pain Nicotine dependence Obesity, Class I, BMI 30-34.9 Type 2 diabetes mellitus, with long-term current use of insulin Surgical History Surgical History No history of previous surgery Family History Family History Other Family history of coronary artery disease Family history of type 2 diabetes mellitus Social History Social History Smoking status: Never smoker Alcohol intake: never Substance use: never Substance use type: does not use Additional occupation/education comments: construction Gender identity (if verbalized by the patient): Male Spiritual care concerns: No Agree to blood products: Yes Exam Const: Limitations: altered mental status (somnolent) HENMT: Head: normal to inspection Ears: external ears normal, TM's normal bilaterally and EAC's normal General nose exam: Normal nares present Face and sinus: normal facial exam Mouth: Yes moist mucous membranes Throat: posterior oropharynx normal Eyes: Conjunctivae: conjunctivae normal EOM: EOMs intact bilaterally Neck: Neck: normal visual inspection and no lymphadenopathy Resp: Effort & Inspection: normal respiratory effort and not labored Auscultation: clear to auscultation bilaterally, no rales, no rhonchi and no wheezes Cardio: Rate: tachycardic Rhythm: regular rhythm Heart sounds: no murmurs GI: GI Palp: Yes Soft to palpation, No Tenderness to palpation present (GI) and No Guarding due to palpation present (GI) Auscultation: normal bowel sounds Skin: General skin exam: normal color, no jaundice and no pallor Rashes: no rashes Neuro: General: moves all extremities, no focal motor deficits and CN's II-XI intact bilaterally Other: Somewhat slurred speech. Extrem: General: normal to inspection and no clubbing, cyanosis or edema Psych: Appearance: well kempt Course Course Emergency Course: Patient signed out AMA. He left before I was able to speak with him about the dangers of leaving with his electrolyte, sugar and physiologic abnormalities. The nu
--- NOTE | 2020-09-28 20:55 | ECG_ITS ---
Measurements Intervals [place] Rate: 98 P: 76 [place]: 151 QRS: 56 QRSD: 97 T: 57 QT: 355 QTc: 455 Interpretive Statements SINUS RHYTHM CANNOT RULE OUT SEPTAL INFARCT, AGE INDETERMINATE ABNORMAL ECG Electronically Signed On 09-29-2020 8:16:27 [employer] by Juno Burton D.O.
[2020-09-28] MEDS: SODIUM CHLORIDE 0.9% IV 1,000 ML 999 ML IV CONT (21:06)
[2020-09-28 21:10] VITALS: BP 121/109; PULSE 104; RESP 20; TEMP 36.7; O2SAT 98
[2020-09-28 21:22] VITALS: PULSE 100
[2020-09-28 21:36] LABS: Base Excess ABG -4.5 mmol/L (0-2); Carboxyhemoglobin 0.2 % (0-1.5); HCO3 ABG 20.5 mmol/L (23-29); Methemoglobin ABG 0.2 % (0-1.5); Oxygen Content ABG 18.5 %vol (16.0-22.0); Oxygen Saturation ABG 96.2 % (95-97); Oxyhemoglobin 95.8 % (94-100); PCO2 ABG 37.9 mmHg (35-45); PO2 ABG 88.3 mmHg (80-90); Reduced Hemoglobin 3.8 % (0-1.5); Total Hemoglobin 13.7 g/dL; pH ABG 7.35 (7.35-7.45)
[2020-09-28 21:38] LABS: Device ROOM AIR; Modified Allen's Test Pass; Site Drawn LEFT RADIAL
[2020-09-28 21:43] LABS: Basophils Absolute Auto 0.04 K/mm3 (0.00-0.10); Basophils Percent Auto 0.5 % (0.0-1.0); Eosinophils Absolute Auto 0.06 K/mm3 (0.02-0.50); Eosinophils Percent Auto 0.8 % (1.0-6.0); Hematocrit 39.1 % (40.0-54.0); Hemoglobin 13.1 g/dL (14.0-18.0); Immature Granulocyte Absolute 0.02 K/mm3 (0.00-0.00); Immature Granulocyte Percent A 0.3 % (0.0-0.0); Lymphocytes Absolute Auto 1.72 K/mm3 (1.10-4.50); Lymphocytes Percent Auto 23.1 % (18.0-42.0); Mean Corpuscular HGB Conc 33.5 g/dL (32.0-36.0); Mean Corpuscular Hemoglobin 30.3 pg (27.0-31.0); Mean Corpuscular Volume 90.3 fL (78.0-102.0); Mean Platelet Volume 10.7 fl (8.7-11.0); Monocytes Absolute Auto 0.68 K/mm3 (0.10-0.90); Monocytes Percent Auto 9.1 % (2.0-11.0); Neutrophils Absolute Auto 4.9 K/mm3 (1.7-7.2); Neutrophils Percent Auto 66.2 % (50.0-70.0); Platelet Count Result 275 K/mm3 (150-420); Red Blood Count 4.33 M/mm3 (4.70-6.10); Red Cell Distribution Width 12.3 % (11.6-14.4); White Blood Count 7.5 K/mm3 (4.8-10.8)
[2020-09-28 21:52] LABS: INR 0.9; Partial Thromboplastin Time 25.6 SEC (23.90-30.70); Prothrombin Time 10.3 Seconds (9.50-12.10)
[2020-09-28 21:55] LABS: Alanine Aminotransferase 41 U/L (16-63); Albumin Level 3.4 g/dL (3.4-5.0); Alkaline Phosphatase 122 U/L (46-116); Anion Gap 9 mmol/L (8-16); Aspartate Amino Transferase 25 U/L (15-37); Bilirubin,Total 0.8 mg/dL (0.00-1.00); Blood Urea Nitrogen 21 mg/dL (7-18); Calcium 8.7 mg/dL (8.5-10.1); Carbon Dioxide 26 mmol/L (21-32); Chloride 93 mmol/L (98-108); Creatine Kinase 304 U/L (39-308); Estimated CRCL calculation 64 ml/min; Estimated Glomerular Filt Rate 49; Ethanol 3 mg/dL (0-6); Magnesium 1.9 mg/dL (1.8-2.4); Potassium 5.2 mmol/L (3.5-5.1); Salicylate 1.2 mg/dL (2.8-20.0); Sodium 128 mmol/L (136-145); Total Protein 7.1 g/dL (6.4-8.2)
[2020-09-28 22:00] LABS: Influenza Control Valid (Valid)
[2020-09-28 22:06] LABS: Acetaminophen < 2 ug/mL (10-30); Ammonia < 10 umol/L (11-32); Glucose 723 mg/dL (70-99); Osmolality Calculated 304 mOsm/kg (285-295)
[2020-09-28 22:11] LABS: Acetone Small (Negative)
[2020-09-28] MEDS: SODIUM CHLORIDE 0.9% IV 1,000 ML 200 ML IV CONT (22:27)
[2020-09-28 22:31] VITALS: PULSE 102; RESP 20; O2SAT 98
[2020-09-28 22:35] LABS: Add Urine Microscopic? YES; Appearance Urine Clear (Clear); Bilirubin Urine Negative (Negative); Blood Urine Negative (Negative); Color Urine Yellow (Yellow); Glucose Urine UA 3+ (Negative); Ketones Urine 2+ (Negative); Leukocyte Esterase Ur Negative (Negative); Nitrate Urine Negative (Negative); Protein Urine Negative (Negative); Urobilinogen Urine 0.2 mg/dL (0.2-1.0); pH Urine 5.5 (5.0-8.0)
[2020-09-28 22:41] LABS: RBC Urine None seen /hpf (0-2); WBC Urine None seen /hpf (0-3)
[2020-09-28 22:42] LABS: Squamous Epithelial Cell Urine None seen /hpf (Few)
[2020-09-28 22:47] LABS: Amphetamine Screen Urine Positive (Negative); Barbiturate Screen Urine Negative (Negative); Benzodiazepines Screen Urine Negative (Negative); Cannabinoid Screen Urine Negative (Negative); Cocaine Screen Urine Negative (Negative); Methadone Screen Urine Negative (Negative); Opiate Screen Urine Negative (Negative); Phencyclidine Screen Urine Negative (Negative)
[2020-09-28 22:49] VITALS: BP 112/71
[2020-10-03 08:42] LABS: Glucose Point of Care > 450 (65-105)
== END 2020-09-28 22:40 | disposition left against medical advice (07) ==
LOC: CHSED 20:50
PROVIDERS: Emergency Provider Emergency Medicine
DX: E10.65 Type 1 diabetes mellitus with hyperglycemia (principal); Z79.4 Long term (current) use of insulin; E87.5 Hyperkalemia
CPT/HCPCS: 36415; 36600; 71045; 80053; 80307; 81001; 82010; 82140; 82375; 82550; 82805; 83050; 83735; 84100; 85025; 85610; 85730; 87040; 87804; 93005; 96360; 96361; 99283; 99284; J7030

== ENCOUNTER 2020-09-29 01:36 | Observation (INO) | payer OTHER, SELFPAY ==
[2020-09-29] VITALS (9 sets, daily range): BP systolic 91–114; BP diastolic 56–71; PULSE 74–103; RESP 16–20; TEMP 36.4–37.3; O2SAT 97–99; BMI 28.8
[2020-09-29] MEDS: SODIUM CHLORIDE 0.9% IV 1,000 ML 999 ML IV CONT (01:43)
--- NOTE | 2020-09-29 01:48 | ED.AMS ---
HPI - Altered Mental Status General Chief Complaint: Unspecified Stated Complaint: Hyperglycemia Time Seen by Provider: 09/29/20 01:40 Source: patient Mode of arrival: EMS Limitations: no limitations History of Present Illness HPI narrative: 30-year-old man with a history of diabetes but in today by EMS after they were called to a scene where he was found lying at the roadside. EMS states that the got him up and as soon as they did he became much more responsive. His blood sugar was greater than 500 in the rig. patient states that he has abdominal pain and points to his left lower quadrant. He states that his insulin is unavailable to him at present. Patient was brought into the emergency department earlier this evening for altered mental status and his blood sugar was over 700. He was given a L of normal saline and then the patient became more awake and he left AMA. complaint: altered mental status Onset (ago): hour(s) Timing confirmed by: family member Severity: moderate Consistency of symptoms: waxing and waning Context: drug abuse, history of similar presentation and diabetes Related Data Home Medications Medication Instructions Recorded Confirmed insulin glargine [Lantus U-100 40 unit SUBCUT QAM 01/23/20 09/29/20 Insulin] insulin lispro [Humalog U-100 See Protocol SUBCUT TID 01/23/20 09/29/20 Insulin] Allergies Allergy/AdvReac Type Severity Reaction Status Date / Time Fish Containing Products Allergy Unknown Verified 09/28/20 21:23 Review of Systems Constitutional: Constitutional: Denies chills, Denies fever(s) and Reports weakness Eyes: Eyes: Denies change in vision and Denies photophobia ENT: Denies dysphagia, Denies nasal congestion and Denies sore throat Cardiovascular: Cardiovascular: Denies chest pain and Denies radiating jaw, neck or arm pain Respiratory: Respiratory: Denies cough and Denies dyspnea Gastrointestinal: Gastrointestinal: Reports abdominal pain, Denies diarrhea, Reports nausea and Denies vomiting Genitourinary: Genitourinary: Denies hematuria, Denies dysuria and Denies urinary frequency Musculoskeletal: Musculoskeletal: Denies arthralgias and Denies joint swelling Comments: Patient states his hands hurt when he moves them. He has been outdoors for the last several hours. Integumentary/Breasts: Skin/Breast: Denies pruritus, Denies erythema and Denies rash Neurologic: Denies vertigo, Denies dizziness and Denies syncope Endocrine: Endocrine: Denies polydipsia and Denies polyuria Hematologic/Lymphatic: Hematologic/Lymphatic: Denies easy bleeding and Denies easy bruising Allergic/Immunologic: Allergic/Immunologic: Denies lip swelling, Denies throat swelling and Denies tongue swelling PMFSH Past Medical History Medical History (Updated 09/29/20 @ 02:25 by Shane Rodriguez MD) Chronic knee pain Chronic shoulder pain Nicotine dependence Obesity, Class I, BMI 30-34.9 Type 2 diabetes mellitus, with long-term current use of insulin Surgical History Surgical History No history of previous surgery Family History Family History Other Family history of coronary artery disease Family history of type 2 diabetes mellitus Social History Social History Smoking status: Never smoker Alcohol intake: never Substance use: never Substance use type: does not use Additional occupation/education comments: construction Gender identity (if verbalized by the patient): Male Spiritual care concerns: No Agree to blood products: Yes Exam Const: General: alert and ill appearing ( Mildly) acutely Orientation/consciousness: patient oriented x3 Other: Mild acute distress. HENMT: Head: normal to inspection General nose exam: Normal nares present Face and sinus: normal facial exam Mouth: Ye
[2020-09-29 02:45] LABS: Basophils Absolute Auto 0.05 K/mm3 (0.00-0.10); Basophils Percent Auto 0.7 % (0.0-1.0); Eosinophils Absolute Auto 0.06 K/mm3 (0.02-0.50); Eosinophils Percent Auto 0.9 % (1.0-6.0); Hematocrit 38.5 % (40.0-54.0); Hemoglobin 12.6 g/dL (14.0-18.0); Immature Granulocyte Absolute 0.02 K/mm3 (0.00-0.00); Immature Granulocyte Percent A 0.3 % (0.0-0.0); Lymphocytes Absolute Auto 1.92 K/mm3 (1.10-4.50); Lymphocytes Percent Auto 27.5 % (18.0-42.0); Mean Corpuscular HGB Conc 32.7 g/dL (32.0-36.0); Mean Corpuscular Hemoglobin 29.8 pg (27.0-31.0); Mean Platelet Volume 11.1 fl (8.7-11.0); Monocytes Absolute Auto 0.73 K/mm3 (0.10-0.90); Monocytes Percent Auto 10.4 % (2.0-11.0); Neutrophils Absolute Auto 4.2 K/mm3 (1.7-7.2); Neutrophils Percent Auto 60.2 % (50.0-70.0); Platelet Count Result 257 K/mm3 (150-420); Red Blood Count 4.23 M/mm3 (4.70-6.10); Red Cell Distribution Width 12.5 % (11.6-14.4)
--- NOTE | 2020-09-29 03:09 | PC.NURSE ---
pt resting , eyes closed, cooperative with care .
[2020-09-29 03:33] LABS: Alanine Aminotransferase 42 U/L (16-63); Albumin Level 3.4 g/dL (3.4-5.0); Alkaline Phosphatase 125 U/L (46-116); Anion Gap 15 mmol/L (8-16); Aspartate Amino Transferase 27 U/L (15-37); Blood Urea Nitrogen 24 mg/dL (7-18); Calcium 8.6 mg/dL (8.5-10.1); Carbon Dioxide 19 mmol/L (21-32); Chloride 89 mmol/L (98-108); Estimated CRCL calculation 75 ml/min; Estimated Glomerular Filt Rate 50; Potassium 5.2 mmol/L (3.5-5.1); Sodium 123 mmol/L (136-145); Total Protein 6.9 g/dL (6.4-8.2)
[2020-09-29 03:38] LABS: Glucose > 800 mg/dL (70-99); Osmolality Calculated 299 mOsm/kg (285-295)
[2020-09-29 03:43] LABS: Glucose Point of Care > 450 (65-105)
[2020-09-29 03:52] LABS: SARS-CoV-2 Ag Negative (Negative)
--- NOTE | 2020-09-29 03:56 | PC.NURSE ---
pt snoring. erp in with pt , easily awakens. discussed plan of care. pt agrees with admission for observation .
--- NOTE | 2020-09-29 04:08 | PC.NURSE ---
blood sugar upon arrival to er 0200 (399)
[2020-09-29] MEDS: SODIUM CHLORIDE 0.9% IV 1,000 ML 200 ML IV CONT (04:09)
--- NOTE | 2020-09-29 04:19 | ED.GENADULT ---
HPI - General Adult General Chief complaint: Unspecified Stated complaint: Hyperglycemia Time Seen by Provider: 09/29/20 01:40 Source: patient Mode of arrival: EMS Limitations: no limitations Related Data Home Medications Medication Instructions Recorded Confirmed insulin glargine [Lantus U-100 40 unit SUBCUT QAM 01/23/20 09/29/20 Insulin] insulin lispro [Humalog U-100 See Protocol SUBCUT TID 01/23/20 09/29/20 Insulin] Allergies Allergy/AdvReac Type Severity Reaction Status Date / Time Fish Containing Products Allergy Unknown Verified 09/28/20 21:23 [facility] Past Medical History Medical History (Updated 09/29/20 @ 04:13 by Nancy Paulino) Chronic knee pain Chronic shoulder pain Nicotine dependence Obesity, Class I, BMI 30-34.9 Type 2 diabetes mellitus, with long-term current use of insulin Surgical History Surgical History No history of previous surgery Family History Family History Other Family history of coronary artery disease Family history of type 2 diabetes mellitus Social History Social History Smoking status: Never smoker Alcohol intake: never Substance use: never Substance use type: does not use Additional occupation/education comments: construction Gender identity (if verbalized by the patient): Male Spiritual care concerns: No Agree to blood products: Yes Course Vital Signs Vital signs: Vital Signs Temperature 36.8 C 09/29/20 01:43 Pulse Rate 95 09/29/20 01:43 Respiratory Rate 09/29/20 01:43 Blood Pressure 110/67 09/29/20 01:43 Pulse Oximetry 98 09/29/20 01:43 Temperature 36.8 C 09/29/20 02:13 Pulse Rate 103 H 09/29/20 03:22 Respiratory Rate 09/29/20 03:22 Blood Pressure 114/58 L 09/29/20 03:22 Pulse Oximetry 99 09/29/20 03:22 Medical Decision Making Vital Signs Vital Signs: Vital Signs Temperature 36.8 C 09/29/20 01:43 Pulse Rate 95 09/29/20 01:43 Respiratory Rate 09/29/20 01:43 Blood Pressure 110/67 09/29/20 01:43 Pulse Oximetry 98 09/29/20 01:43 Temperature 36.8 C 09/29/20 02:13 Pulse Rate 103 H 09/29/20 03:22 Respiratory Rate 20 09/29/20 03:22 Blood Pressure 114/58 L 09/29/20 03:22 Pulse Oximetry 99 09/29/20 03:22 Lab Data Result diagrams: 09/29/20 01:41 09/29/20 01:41 Labs: Lab Results 09/29/20 09/29/20 09/29/20 Range/Units 01:41 01:41 02:56 WBC 7.0 (4.8-10.8) K/mm3 RBC 4.23 L (4.70-6.10) M/mm3 Hgb 12.6 L (14.0-18.0) g/dL Hct 38.5 L (40.0-54.0) % MCV 91.0 (78.0-102.0) fL MCH 29.8 (27.0-31.0) pg MCHC 32.7 (32.0-36.0) g/dL RDW 12.5 (11.6-14.4) % Plt Count 257 (150-420) K/mm3 MPV 11.1 H (8.7-11.0) fl Immature Gran % (Auto) 0.3 H (0.0-0.0) % Neut % (Auto) 60.2 (50.0-70.0) % Lymph % (Auto) 27.5 (18.0-42.0) % [place] % (Auto) 10.4 (2.0-11.0) % Eos % (Auto) 0.9 L (1.0-6.0) % Baso % (Auto) 0.7 (0.0-1.0) % Lymph # (Auto) 1.92 (1.10-4.50) K/mm3 [place] # (Auto) 0.73 (0.10-0.90) K/mm3 Eos # (Auto) 0.06 (0.02-0.50) K/mm3 Baso # (Auto) 0.05 (0.00-0.10) K/mm3 Abs Immat Gran (auto) 0.02 H (0.00-0.00) K/mm3 Absolute Neuts (auto) 4.2 (1.7-7.2) K/mm3 Absolute Nucleated RBC 0.00 (0.00-0.00) K/mm3 Nucleated RBC % 0.0 (0-0.0) % Sodium 123 L (136-145) mmol/L Potassium 5.2 H (3.5-5.1) mmol/L Chloride 89 L (98-108) mmol/L Carbon Dioxide 19 L (21-32) mmol/L Anion Gap 15 (8-16) mmol/L BUN 24 H (7-18) mg/dL Creatinine 1.61 H (0.70-1.30) mg/dL Estim Creat Clear Calc 75 ml/min Estimated GFR 50 L (59 - ) Glucose > 800 H* (70-99) mg/dL POC Capillary Glucose (65-105) mg/dl Calculated Osmolality 299 H (285-295) mOsm
--- NOTE | 2020-09-29 04:30 | ADMGEN ---
This patient, Lewis Clement, was admitted to 2nd Floor Room 207-2. Patient/family oriented to hospital policies and general routines including ID bracelet, bed and alarms, visiting hours, pain management, procedures, bathroom and other care routines, personal items, smoking policy, room service/diet, and visiting hours. Information on how to activate the Rapid Response Team has been discussed. Patient/Family are encouraged to report perceived risks to care and to ask questions if they do not understand what they are told or what they should do.
--- NOTE | 2020-09-29 04:30 | PC.NURSE ---
Addendum entered by Kimberly Hammer RN 09/29/20 05:23: Patient has a watch on the bedside table and he has two bags of belongings in the room. He denies having anything that needs secure storage and he denies having medications in his belongings. Original Note: Patient admitted to room 207 from ER. Patient is lethargic, he wakes to name briefly. Patient is able to answer orientation question appropriately.
--- NOTE | 2020-09-29 05:19 | PC.NURSE ---
Patient is a very poor historian at this time due to lethargy, patient will wake briefly to answer question then go back to sleep immediately. Patient unable to provide a password at this time. Patient has call light and belongings within reach. Bed alarm is on at this time for patient safety.
[2020-09-29 06:16] LABS: Glucose Point of Care 391 (65-105)
[2020-09-29 07:35] LABS: Anion Gap 9 mmol/L (8-16); Blood Urea Nitrogen 20 mg/dL (7-18); Calcium 8.4 mg/dL (8.5-10.1); Carbon Dioxide 25 mmol/L (21-32); Chloride 98 mmol/L (98-108); Estimated CRCL calculation 77 ml/min; Estimated Glomerular Filt Rate > 60; Osmolality Calculated 293 mOsm/kg (285-295); Potassium 3.6 mmol/L (3.5-5.1); Sodium 132 mmol/L (136-145)
[2020-09-29 07:45] LABS: Glucose 405 mg/dL (70-99); Phosphorus 3.1 mg/dL (2.6-4.7)
[2020-09-29 07:59] LABS: Glucose Point of Care 331 (65-105)
[2020-09-29] MEDS: INSULIN GLARGINE (*BKC) 100 UNITS/ML 40 UNITS SUB-Q (09:19)
[2020-09-29 10:28] LABS: Glucose Point of Care 309 (65-105)
[2020-09-29 11:59] LABS: Glucose Point of Care 287 (65-105)
[2020-09-29] MEDS: chlordiazePOXIDE (*CRX) 25 MG CAPSULE 50 MG PO ×2 (12:11→18:28)
--- NOTE | 2020-09-29 12:39 | PM.IMHP ---
H&P: HPI History of Present Illness Date/Time: 09/29/20 12:39 Chief Complaint: Abdominal pain with elevated blood sugar Narrative: Lewis Clement is a 30 year old male who presented to the ED yesterday for altered mental status with a blood sugar of 700 patient was treated in the ED and decided to leave AMA. Patient has a past medical history diabetes type 2, chronic knee pain, chronic shoulder pain, diabetes dependent, obesity. he was found in a ditch passed out by EMS at that time patient blood sugar was 500 and he noted that he was having abdominal pain because he was cold. Patient is noncompliant with this medication and tested positive for amphetamines, patient labs labs on admission when he left AMA sodium level was 123 his potassium level and admission was 5.2 his creatinine was 1.61 blood sugar 800 at this time he is not having any issues or does not have any cough. The patient denies SOB, CP, palpitation, extremity numbness, lightheadedness, dizziness, constipation, diarrhea, chills, or fever. Review of Systems Review of Systems: All systems reviewed & are unremarkable except as noted in HPI and below (10 point system review) [facility] Past Medical History Medical History (Updated 09/29/20 @ 04:13 by Nancy Paulino) Chronic knee pain Chronic shoulder pain Nicotine dependence Obesity, Class I, BMI 30-34.9 Type 2 diabetes mellitus, with long-term current use of insulin Surgical History Surgical History No history of previous surgery Family History Family History Other Family history of coronary artery disease Family history of type 2 diabetes mellitus Social History Social History Smoking status: Never smoker Alcohol intake: former Substance use: current Substance use type: crack/cocaine Last use: 09/22/20 Additional occupation/education comments: construction Gender identity (if verbalized by the patient): Male Spiritual care concerns: No Agree to blood products: Yes Meds Home Medications and Allergies Home Medications Medication Instructions Recorded Confirmed Type blood sugar diagnostic #100 each 10/13/19 09/29/20 Rx blood-glucose meter #1 each 10/13/19 09/29/20 Rx lancets 30 gauge #100 each 10/13/19 09/29/20 Rx pen needle, diabetic 31 gauge x #100 each 10/13/19 09/29/20 Rx 5/16 insulin glargine [Lantus U-100 40 unit SUBCUT QAM 01/23/20 09/29/20 History Insulin] insulin lispro [Humalog U-100 See Protocol SUBCUT TID 01/23/20 09/29/20 History Insulin] Allergies Allergy/AdvReac Type Severity Reaction Status Date / Time Fish Containing Products Allergy Unknown Verified 09/28/20 21:23 Vital Signs Vital Signs - 24 hr 09/29/20 01:43 09/29/20 02:13 09/29/20 03:22 Temperature 98.3 F 98.3 F Pulse Rate 95 95 103 H Respiratory Rate 20 20 20 Blood Pressure 110/67 110/67 114/58 L Pulse Oximetry 98 98 99 09/29/20 04:20 09/29/20 04:50 09/29/20 08:00 Temperature 97.9 F 98.8 F 97.8 F Pulse Rate 98 94 90 Respiratory Rate 20 16 18 Blood Pressure 104/57 L 111/63 113/61 Pulse Oximetry 97 97 99 Exam Narrative: Exam Narrative: GENERAL: This is a well-nourished, well-developed patient, in no apparent distress. HEAD: normocephalic, atraumatic. EYES: PERRL. Sclera clear/white. Vision is grossly intact. EARS: External ears normal, auditory canals clear and without drainage, TMs normal without perforation. Hearing grossly intact. NOSE: External nose normal with no obvious nasal discharge, nares without redness, no rhinorrhea. THROAT: Mucous membranes moist, posterior pharynx clear. NECK: Neck supple, non-tender without lymphadenopathy, masses or thyromegaly. CARDIOVASCULAR: Regular rate and rhythm without murmurs, gallops, or rubs. RESPIRATORY: Clear to auscultation. Breath sounds equal bilaterally
[2020-09-29 15:05] LABS: Glucose Point of Care 273 (65-105)
[2020-09-29 16:57] LABS: Glucose Point of Care 251 (65-105)
[2020-09-29 20:20] LABS: Glucose Point of Care 144 (65-105)
[2020-09-30] VITALS: BP 109/70; PULSE 73; RESP 18; TEMP 36.6; O2SAT 97
[2020-09-30] MEDS: chlordiazePOXIDE (*CRX) 25 MG CAPSULE 50 MG PO ×2 (00:01→05:58)
[2020-09-30 00:10] LABS: Glucose Point of Care 117 (65-105)
[2020-09-30 04:00] VITALS: BP 100/62; PULSE 69; RESP 18; TEMP 36.4; O2SAT 97
[2020-09-30 04:14] LABS: Glucose Point of Care 97 (65-105)
[2020-09-30 05:49] LABS: Hematocrit 37.6 % (40.0-54.0); Hemoglobin 12.6 g/dL (14.0-18.0); Mean Corpuscular HGB Conc 33.5 g/dL (32.0-36.0); Mean Corpuscular Hemoglobin 30.2 pg (27.0-31.0); Mean Corpuscular Volume 90.2 fL (78.0-102.0); Mean Platelet Volume 9.9 fl (8.7-11.0); Platelet Count Result 240 K/mm3 (150-420); Red Blood Count 4.17 M/mm3 (4.70-6.10); Red Cell Distribution Width 12.5 % (11.6-14.4); White Blood Count 5.4 K/mm3 (4.8-10.8)
[2020-09-30 06:07] LABS: Alanine Aminotransferase 33 U/L (16-63); Albumin Level 2.8 g/dL (3.4-5.0); Alkaline Phosphatase 95 U/L (46-116); Anion Gap 6 mmol/L (8-16); Aspartate Amino Transferase 22 U/L (15-37); Bilirubin,Total 0.6 mg/dL (0.00-1.00); Blood Urea Nitrogen 11 mg/dL (7-18); Calcium 8.1 mg/dL (8.5-10.1); Carbon Dioxide 28 mmol/L (21-32); Chloride 104 mmol/L (98-108); Estimated CRCL calculation 110 ml/min; Estimated Glomerular Filt Rate > 60; Glucose 103 mg/dL (70-99); Osmolality Calculated 285 mOsm/kg (285-295); Potassium 3.4 mmol/L (3.5-5.1); Sodium 138 mmol/L (136-145); Total Protein 6.1 g/dL (6.4-8.2)
[2020-09-30 07:45] VITALS: BP 100/59; PULSE 61; RESP 16; TEMP 36.6; O2SAT 98
[2020-09-30 07:47] LABS: Glucose Point of Care 111 (65-105)
--- NOTE | 2020-09-30 08:04 | PM.DS ---
DS: Admitting Diagnosis Admitting Diagnosis Admitting Diagnosis: Hyperglycemia DS: Discharge Diagnosis Discharge Diagnosis (1) Acute hyperglycemia: Code(s): R73.9 - Hyperglycemia, unspecified Status: Acute Assessment and Plan: Patient blood sugar 800 then 405 currently 103 Patient noncompliant Patient notes that he has a prescription for insulin he does not need a note (2) Acute hyperkalemia: Code(s): E87.5 - Hyperkalemia Status: Acute Assessment and Plan: Patient potassium 3.2 supplement given (3) Acute renal failure: Code(s): N17.9 - Acute kidney failure, unspecified Status: Acute Assessment and Plan: Patient BUN 27 creatinine 1.61 GFR 50 then BUN 20, creatinine 1.35, GFR 60 now BUN 11 creatinine 0.93 GRF 60 resolved (4) Amphetamine abuse: Code(s): F15.10 - Other stimulant abuse, uncomplicated Status: Acute Assessment and Plan: Patient tested positive for amphetamines Educated on cessation (5) Hyponatremia: Code(s): E87.1 - Hypo-osmolality and hyponatremia Status: Acute Assessment and Plan: Patient sodium level 123 now 138 improved (6) Type 2 diabetes mellitus, with long-term current use of insulin: Qualifiers: Diabetes mellitus complication status: with hyperglycemia Qualified Code(s): E11.65 - Type 2 diabetes mellitus with hyperglycemia; Z79.4 - alf (current) use of insulin Code(s): E11.9 - Type 2 diabetes mellitus without complications; Z79.4 - alf (current) use of insulin Status: Acute Assessment and Plan: Referred to hyperglycemia Patient noncompliant DS: Summary Hospital Course Hospital Course: Chief Complaint: Abdominal pain with elevated blood sugar Narrative: Lewis Clement is a 30 year old male who presented to the ED for altered mental status with a blood sugar of 700 patient was treated in the ED and decided to leave AMA. Patient has a past medical history diabetes type 2, chronic knee pain, chronic shoulder pain, diabetes dependent, obesity. he was found in a ditch passed out by EMS at that time patient blood sugar was 500 and he noted that he was having abdominal pain because he was cold. Patient is noncompliant with this medication and tested positive for amphetamines, patient labs labs on admission when he left AMA sodium level was 123 his potassium level and admission was 5.2 his creatinine was 1.61 blood sugar 800. During this hospital stay patient was treated for his hyperglycemia and also treated with Librium to prevent withdrawal symptoms from amphetamine. Today patient's blood sugar is better controlled his blood sugar is currently 103. He agrees that he is ready for discharge today. Patient notes that he does not need a prescription for his insulin his doctor wrote him a prescription for a year in advance. The patient denies SOB, CP, palpitation, extremity numbness, lightheadedness, dizziness, constipation, diarrhea, chills, or fever. Time Spent with Patient Time attestation: Total time spent providing and/or coordinating discharge services: Exam Narrative: Exam Narrative: GENERAL: This is a well-nourished, well-developed patient, in no apparent distress. HEAD: normocephalic, atraumatic. EYES: PERRL. Sclera clear/white. Vision is grossly intact. EARS: External ears normal, auditory canals clear and without drainage, TMs normal without perforation. Hearing grossly intact. NOSE: External nose normal with no obvious nasal discharge, nares without redness, no rhinorrhea. THROAT: Mucous membranes moist, posterior pharynx clear. NECK: Neck supple, non-tender without lymphadenopathy, masses or thyromegaly. CARDIOVASCULAR: Regular rate and rhythm without murmurs, gallops, or rubs. RESPIRATORY: Clear to auscultation. Breath sounds equal bilaterally. No wheezes, rales, or rhonchi. GASTROINTESTINAL: Abdomen soft, non-tender, nondistended. Bowel sounds are a
[2020-09-30] MEDS: POTASSIUM CHLORIDE 20 MEQ TABLET 40 MEQ PO (08:55)
[2020-09-30] MEDS: INSULIN GLARGINE (*BKC) 100 UNITS/ML 40 UNITS SUB-Q (08:56)
--- NOTE | 2020-09-30 09:55 | PC.NURSE ---
all discharge instructions and education reviewed with patient. Patient states understanding. All belongings gathered together. Patient left ambulatory. this nurse accompanied patient to front door. Denies any questions at discharge.
--- NOTE | 2020-10-05 11:41 | PC.NURSE ---
Pt states he received and understood his discharge instructions. Has no other comments.
== END 2020-09-30 09:55 | disposition home or self-care (01) ==
LOC: CHSED 04:13 → CHS2ND 09-30 08:04
PROVIDERS: Nurse Practitioner; Admitting Provider Emergency Medicine; Emergency Provider Emergency Medicine; Visit Provider Emergency Medicine
DX: E11.65 Type 2 diabetes mellitus with hyperglycemia (principal); N17.9 Acute kidney failure, unspecified; E87.5 Hyperkalemia; E87.1 Hypo-osmolality and hyponatremia; M25.569 Pain in unspecified knee; M25.519 Pain in unspecified shoulder; G89.29 Other chronic pain; E66.9 Obesity, unspecified; F15.10 Other stimulant abuse, uncomplicated; Z79.4 Long term (current) use of insulin; Z91.14 Patient's other noncompliance with medication regimen; Z20.828 Contact with and (suspected) exposure to other viral communicable diseases
CPT/HCPCS: 36415; 80048; 80053; 82948; 83735; 84100; 85025; 85027; 87426; 96360; 99285; A9270; C9803; G0378; G0379; J1815; J7030

== ENCOUNTER 2020-10-21 15:00 | Emergency (ER) | payer OTHER, SELFPAY ==
--- NOTE | ~2020-10-21 | XR_ITS ---
EXAMINATION: XR chest 1V portable EXAM DATE: 10/21/2020 16:03 INDICATION: Shortness of breath. TECHNIQUE: Portable AP frontal chest x-ray was obtained. Comparison is made to prior examination from 09/28/2020. FINDINGS: The lungs are clear. There are no pleural effusions. The cardiomediastinal silhouette is within normal limits. There is no pneumothorax suspected. The bones and soft tissues are unremarkab le. IMPRESSION: Unremarkable chest x-ray exam. Reviewed, dictated and finalized at location A. MANAGER
[2020-10-21 15:00] VITALS: BP 165/108; PULSE 102; RESP 16; TEMP 36.5; O2SAT 100
--- NOTE | 2020-10-21 15:26 | PC.NURSE ---
SHA TURNTABLE ENGINEER LEAVES THE BEDSIDE, STATES PT IS NOT UNDER INVESTIGATION FOR ARREST AND IS FREE TO LEAVE.
--- NOTE | 2020-10-21 15:36 | ECG_ITS ---
Measurements Intervals [place] Rate: 94 P: 54 NE: 145 QRS: 10 QRSD: 94 T: 31 QT: 355 QTc: 445 Interpretive Statements SINUS RHYTHM ST ELEVATION IN ANTEROLATERAL LEADS- PROBABLY EARLY REPOLARIZATION BASELINE ARTIFACT- I, II, III, AVR, AVL, AVF, V1-V3 BORDERLINE ECG Electronically Signed On 10-23-2020 7:16:26 MARKETING UNDERWRITER by Juno Burton D.O.
--- NOTE | 2020-10-21 15:39 | ED.GENADULT ---
HPI - General Adult General Chief complaint: Psychiatric Symptoms Stated complaint: unknown Time Seen by Provider: 10/21/20 15:39 Source: patient Mode of arrival: ambulatory Limitations: altered mental status History of Present Illness HPI narrative: Patient is brought in by EMS and the police. The police were worried that he had lost weight. Evidently they think he has been using meth. He does not speal much regarding this. He does complain of mild epigastric discomfort. Radiation: non-radiation Severity: mild Quality: burning Related Data Allergies Allergy/AdvReac Type Severity Reaction Status Date / Time Fish Containing Products Allergy Unknown Verified 09/28/20 21:23 Review of Systems Constitutional: Constitutional: Reports no additional constitutional complaints Eyes: Eyes: Reports no additional eye complaints ENT: Reports system reviewed and no additional complaints, except as documented Cardiovascular: Cardiovascular: Reports no additional cardiovascular complaints Respiratory: Respiratory: Reports no additional respiratory complaints Gastrointestinal: Gastrointestinal: Reports no additional gastrointestinal complaints Genitourinary: Genitourinary: Reports no additional male genitourinary complaints Musculoskeletal: Musculoskeletal: Reports no additional musculoskeletal complaints Integumentary/Breasts: Skin/Breast: Reports system reviewed and no additional complaints, except as docu Neurologic: Reports system reviewed and no additional complaints, except as documented Psychiatric: Psychiatric: Reports no additional psychiatric complaints Endocrine: Endocrine: Reports no additional endocrine complaints Hematologic/Lymphatic: Hematologic/Lymphatic: Reports no additional hematologic/lymphatic complaints Allergic/Immunologic: Allergic/Immunologic: Reports no additional allergic/immunologic complaints [facility] Past Medical History Medical History Chronic knee pain Chronic shoulder pain Nicotine dependence Obesity, Class I, BMI 30-34.9 Type 2 diabetes mellitus, with long-term current use of insulin Surgical History Surgical History No history of previous surgery Family History Family History Other Family history of coronary artery disease Family history of type 2 diabetes mellitus Social History Social History Smoking status: Never smoker Alcohol intake: former Substance use: current Substance use type: crack/cocaine Last use: 09/22/20 Additional occupation/education comments: construction Gender identity (if verbalized by the patient): Male Spiritual care concerns: No Agree to blood products: Yes Exam Const: General: no acute distress Orientation/consciousness: patient oriented x3 HENMT: Head: normal to inspection Ears: external ears normal and TM's normal bilaterally General nose exam: Normal external nose present Face and sinus: normal facial exam Mouth: Yes moist mucous membranes Eyes: Conjunctivae: conjunctivae normal Neck: Neck: normal visual inspection Chest: Chest palpation & inspection: normal inspection of the chest Resp: Effort & Inspection: normal respiratory effort Auscultation: clear to auscultation bilaterally Cardio: Rate: regular rate Rhythm: regular rhythm GI: GI Palp: Yes Soft to palpation (nontender ) Skin: General skin exam: normal color Neuro: General: patient oriented x3 and moves all extremities Extrem: General: normal to inspection Psych: Appearance: grossly normal and other (flat affect) Thought content: Yes Normal thought content present Course Course Emergency Course: Labs CXR, EKG, troponin were all reviewed. Epigastric discomfort appears to have spontaneously resolved. Vital Signs Vital signs: Vital Signs [place]
[2020-10-21 16:03] LABS: Basophils Absolute Auto 0.03 K/mm3 (0.00-0.10); Basophils Percent Auto 0.7 % (0.0-1.0); Eosinophils Absolute Auto 0.07 K/mm3 (0.02-0.50); Eosinophils Percent Auto 1.6 % (1.0-6.0); Hematocrit 39.9 % (40.0-54.0); Hemoglobin 13.8 g/dL (14.0-18.0); Immature Granulocyte Absolute 0.01 K/mm3 (0.00-0.00); Immature Granulocyte Percent A 0.2 % (0.0-0.0); Lymphocytes Absolute Auto 1.14 K/mm3 (1.10-4.50); Lymphocytes Percent Auto 26.6 % (18.0-42.0); Mean Corpuscular HGB Conc 34.6 g/dL (32.0-36.0); Mean Corpuscular Hemoglobin 30.4 pg (27.0-31.0); Mean Corpuscular Volume 87.9 fL (78.0-102.0); Mean Platelet Volume 10.5 fl (8.7-11.0); Monocytes Absolute Auto 0.38 K/mm3 (0.10-0.90); Monocytes Percent Auto 8.9 % (2.0-11.0); Neutrophils Absolute Auto 2.7 K/mm3 (1.7-7.2); Platelet Count Result 243 K/mm3 (150-420); Red Blood Count 4.54 M/mm3 (4.70-6.10); Red Cell Distribution Width 12.7 % (11.6-14.4); White Blood Count 4.3 K/mm3 (4.8-10.8)
[2020-10-21 16:19] LABS: BNP < 5.0 pg/mL (0-100)
[2020-10-21 16:21] LABS: Alanine Aminotransferase 28 U/L (16-63); Albumin Level 3.5 g/dL (3.4-5.0); Alkaline Phosphatase 108 U/L (46-116); Anion Gap 11 mmol/L (8-16); Aspartate Amino Transferase 18 U/L (15-37); Blood Urea Nitrogen 7 mg/dL (7-18); Calcium 8.7 mg/dL (8.5-10.1); Carbon Dioxide 29 mmol/L (21-32); Chloride 98 mmol/L (98-108); Estimated Glomerular Filt Rate > 60; Glucose 306 mg/dL (70-99); Osmolality Calculated 296 mOsm/kg (285-295); Potassium 3.9 mmol/L (3.5-5.1); Sodium 138 mmol/L (136-145); Total Protein 7.4 g/dL (6.4-8.2); Troponin I 7.4 ng/L (0.00-60.4)
[2020-10-21 16:26] LABS: D Dimer 0.25 mg/L (0.19-0.50)
[2020-10-21 16:42] VITALS: BP 134/79
== END 2020-10-21 16:45 | disposition home or self-care (01) ==
PROVIDERS: Emergency Provider Emergency Medicine
DX: R10.13 Epigastric pain (principal)
CPT/HCPCS: 36415; 71045; 80053; 83880; 84484; 85025; 85380; 93005; 99283; 99284

== ENCOUNTER 2020-11-08 23:00 | Emergency (ER) | payer OTHER, SELFPAY ==
[2020-11-08 23:00] VITALS: BP 110/44; PULSE 102; RESP 28; TEMP 36.9; O2SAT 97
--- NOTE | 2020-11-08 23:20 | ECG_ITS ---
Measurements Intervals [place] Rate: 103 P: [place]: 0 QRS: 98 QRSD: 148 T: 20 QT: 404 QTc: 530 Interpretive Statements ECTOPIC ATRIAL RHYTHM AND ECTOPIC ATRIAL TACHYCARDIA RIGHT AXIS DEVIATION INTRAVENTRICULAR CONDUCTION DELAY TYPE 3 BRUGADA PATTERN (NON-DIAGNOSTIC) ST-T WAVE ABNORMALITY IN INFERIOR LEADS- CONSIDER ISCHEMIA BASELINE WANDER- III, AVF, V1-V3, V6 ABNORMAL ECG Electronically Signed On 11-09-2020 6:41:50 TUGBOAT CAPTAIN by Juno Burton D.O.
[2020-11-08] MEDS: SODIUM CHLORIDE 0.9% IV 1,000 ML 999 ML IV CONT (23:30)
[2020-11-08 23:51] LABS: Hematocrit 45.2 % (40.0-54.0); Hemoglobin 11.7 g/dL (14.0-18.0); Mean Corpuscular HGB Conc 25.9 g/dL (32.0-36.0); Mean Corpuscular Volume 119.6 fL (78.0-102.0); Mean Platelet Volume 11.8 fl (8.7-11.0); Platelet Count Result 319 K/mm3 (150-420); Red Blood Count 3.78 M/mm3 (4.70-6.10); Red Cell Distribution Width 12.7 % (11.6-14.4)
[2020-11-08 23:58] LABS: Band Neutrophils Percent 1 % (0-6); Basophils Percent Manual 0 % (0-1); Eosinophils Percent Manual 0 % (1-6); Lymphocytes Percent Manual 8 % (18-44); Monocytes Absolute Manual 1.66 K/mm3 (0.1-0.90); Monocytes Percent Manual 7 % (3-9); Neutrophils Absolute Manual 20.23 K/mm3 (1.3-6.7); Neutrophils Percent Manual 84 % (46-73); Platelet Estimate Adequate (Adequate)
--- NOTE | 2020-11-09 00:02 | ED.GENADULT ---
HPI - General Adult General Chief complaint: Unspecified Stated complaint: Hyperglycemia Time Seen by Provider: 11/08/20 23:03 Source: EMS Mode of arrival: EMS Limitations: altered mental status History of Present Illness HPI narrative: Lewis is a 30M with a PMH of insulin dependent diabetes with poor control, nicotine abuse, and amphetamine abuse that was brought to the ED by EMS with altered mental status. Per EMS, his girlfriend at the scene said he had been becoming more altered for 3 days. He was given 2 of narcan at the scene and then became combative. In the ED he was combative and fighting with the nursing staff. He was rolling around on the bed and most of his speech was incomprehensible but also yelled something about the police. Despite being told the police were not here he continued to be agitated. Related Data Allergies Allergy/AdvReac Type Severity Reaction Status Date / Time Fish Containing Products Allergy Unknown Verified 09/28/20 21:23 Review of Systems Review of Systems: ROS unobtainable: Yes unobtainable due to mental status [facility] Past Medical History Medical History (Updated 11/09/20 @ 01:01 by Miguel Knox DO) Chronic knee pain Chronic shoulder pain Nicotine dependence Obesity, Class I, BMI 30-34.9 Type 2 diabetes mellitus, with long-term current use of insulin Surgical History Surgical History No history of previous surgery Family History Family History Other Family history of coronary artery disease Family history of type 2 diabetes mellitus Social History Social History Smoking status: Never smoker Alcohol intake: former Substance use: current Substance use type: crack/cocaine Last use: 09/22/20 Additional occupation/education comments: construction Gender identity (if verbalized by the patient): Male Spiritual care concerns: No Agree to blood products: Yes Exam Const: General: ill appearing Other: Was in severe distress. He was combative pulling away from staff, speaking words that did not make sense HENMT: Other: Normocephalic, atrauamtic Eyes: EOM: EOMs intact bilaterally Neck: Neck: normal visual inspection Chest: Chest palpation & inspection: normal inspection of the chest Resp: Effort & Inspection: retractions and uses accessory muscles Other: Rapid deep respirations Cardio: Rate: tachycardic GI: GI Palp: Yes Tenderness to palpation present (GI) and Yes Guarding due to palpation present (GI) Skin: General skin exam: normal color Rashes: no rashes Neuro: Other: At times may have been altered to himself but that was all. Moved all extremities. Extrem: General: normal to inspection Psych: Appearance: disheveled Other: Agitated yelling for help and saying something about the police. Continuously pulled away from the nursing staff while attempting to place IV. Course Course Emergency Course: Lewis was brought in by EMS very agitated. His IV had stopped flowing shortly after. We attempted many times with all ER staffed trying to restrain the patient. An EKG was done to check the QTc before giving Haldol. It was slightly prolonged at 464. Before meds could be collected he became even more combative and rolled at the nursing at the bedside and fell to the ground. At this time he tried to bite J Carlos. At this time additional help was called to get him back in bed. Just before they arrived he went still. No pulse was found. Code blue was called at 1235. The code was run using ACLS protocol. IV access was gained with IO access. He was given an amp of bicarb, 10u of insulin and fluids. He was given 3 doses of epi. All rhythm checks were asystole. He was pronounced at 1201. I called the mother Britni Edmond at [phone] and broke the news to her. She was in [place] and cou
[2020-11-09 00:03] LABS: White Blood Count 23.8 K/mm3 (4.8-10.8)
[2020-11-09 00:05] LABS: Lactic Acid Reflex 13.7 mmol/L (0.4-2.0)
[2020-11-09 00:12] LABS: Alanine Aminotransferase 29 U/L (16-63); Alkaline Phosphatase 125 U/L (46-116); Aspartate Amino Transferase 22 U/L (15-37); Bilirubin,Total 0.6 mg/dL (0.00-1.00); Blood Urea Nitrogen 38 mg/dL (7-18); Calcium 7.9 mg/dL (8.5-10.1); Carbon Dioxide 5 mmol/L (21-32); Chloride 68 mmol/L (98-108); Estimated Glomerular Filt Rate 20; Lipase 52 U/L (73-393); Total Protein 6.1 g/dL (6.4-8.2)
[2020-11-09 00:20] LABS: Add Urine Microscopic? YES; Appearance Urine Clear (Clear); Bilirubin Urine Negative (Negative); Blood Urine 2+ (Negative); Color Urine Yellow (Yellow); Glucose Urine UA 3+ (Negative); Ketones Urine Trace (Negative); Leukocyte Esterase Ur Trace (Negative); Nitrate Urine Negative (Negative); Protein Urine Trace (Negative); Specific Grav Ur 1.015 (1.010-1.020); Urobilinogen Urine 0.2 mg/dL (0.2-1.0)
[2020-11-09 00:22] LABS: Glucose > 800 mg/dL (70-99); Osmolality Calculated 272 mOsm/kg (285-295); Potassium 7.8 mmol/L (3.5-5.1); Sodium 107 mmol/L (136-145)
[2020-11-09 00:23] LABS: Phosphorus > 8.0 mg/dL (2.6-4.7)
[2020-11-09 00:26] LABS: Bacteria Urine Trace /hpf; Squamous Epithelial Cell Urine None seen /hpf (Few)
[2020-11-09 00:28] LABS: Amphetamine Screen Urine Positive (Negative); Barbiturate Screen Urine Negative (Negative); Benzodiazepines Screen Urine Negative (Negative); Cannabinoid Screen Urine Negative (Negative); Cocaine Screen Urine Negative (Negative); Methadone Screen Urine Negative (Negative); Opiate Screen Urine Negative (Negative); Phencyclidine Screen Urine Negative (Negative)
--- NOTE | 2020-11-09 03:53 | PC.NURSE ---
pt arrived to er per ems after dose of narcan given for being in and out with unresponsive periods. pt restless and moving all around cot. RN attempting to start IV as IV started by ems to RAC not infusing appropriately. J Carlos CASTRO, Dr Knox, [facility] in room with pt since arrival. Oxygen 2LNC applied. EKG obtained.A Pt hallucinating about police here, nipple weird shaped . While attempting to start IV, Pt moved self to floor next to RN and started biting own left upper arm, bite sejal obvious. RN trying to reorientate pt, without success. Pt then laid on floor and attempted to bite RN right leg, biting pant leg and sock of RN. Pt eyes then noted to roll back and pt stopped breathing. staff called to room for rapid response code. Pt lifted from floor per 5 staff back to cot. cpr in progress. crash cart bought to ER Room #1. See code flowsheet for ACLS protocol. Pt had large emesis of coffee ground brown liquid after cpr had been initiated. Resp staff Ruth arrived to assist with code. GLORIA Munson and GLORIA Rich arrived from floor to assist with code. Rui, director of medical staff services also assisted with cpr. Time of announced per Dr. Knox. Graciela Calle RN
--- NOTE | 2020-11-09 10:41 | PC.NURSE ---
Arcade Technician Billy updated on status.
== END 2020-11-09 00:01 | disposition expired ==
PROVIDERS: Emergency Provider Family Medicine; PCP Family Medicine
DX: E11.10 Type 2 diabetes mellitus with ketoacidosis without coma (principal); Z79.4 Long term (current) use of insulin
CPT/HCPCS: 36415; 36600; 36680; 51701; 80053; 80307; 81001; 83605; 83690; 83735; 84100; 85025; 92950; 93005; 96360; 99285; J0171; J1815; J7030